=== PATIENT | female | born 1960 | race Caucasian/White ===

== ENCOUNTER 2019-06-19 08:22 | Inpatient (IN) | payer OTHER ==
[~2019-06-19] VITALS: Ht 157.5 cm; Wt 61.5 kg
[~2019-06-19 08:22] MED LIST: ACEASPCAF PO; ALBU4 PO; ALBU90OI6 INH; ALBU90OI61 INH; ASPI325 PO; ASPI325EC PO; ASPI81CH PO; ASPI81EC PO; ATOR20 PO; AZIT250 PO; Aspir 8181 MG PO; BISA10S PR; DOC250 PO; DOCU100 PO; DULERA 100 MCG/13 GM INH; EFFIENT10 MG PO; FAMO20 PO; FISH1000 PO; FLUSAL1005; FLUSAL1005 IH; HYDACE5 PO; ISOD40ER PO; ISOMON30 PO; Isosorbide Mono30 MG PO; MELO7.5 PO; METO25ER PO; MONT10T PO; NITR.6SL SL; OMEP20ER PO; ONDA8 PO; OXYACE5T PO; PRAV20 PO; PROG100 PO; PROM25 PO; Percocet 5-3251 EACH PO; Pravachol80 MG PO; Prednisone20 MG PO; SPIR25 PO; TICA90TA PO; TIOT18 INH; TRAZ100 PO; UBID100 PO; Zofran Odt4 MG SL; Zovirax800 MG PO
[2019-06-19 08:42] LABS: BASOPHILS ABSOLUTE AUTO 0.07 K/mm3 (0.00-0.23); BASOPHILS PERCENT AUTO 1 % (0-2); EOSINOPHILS ABSOLUTE AUTO 0.44 K/mm3 (0.00-0.68); EOSINOPHILS PERCENT AUTO 6 % (0-6); Hematocrit 43.2 % (33.0-51.0); Hemoglobin 13.6 g/dL (11.5-16.0); IMMATURE GRAN ABSOLUTE AUTO 0.02 K/mm3 (0.00-0.10); IMMATURE GRAN PERCENT AUTO 0 % (0-1); LYMPHOCYTES ABSOLUTE AUTO 2.43 K/mm3 (0.84-5.20); LYMPHOCYTES PERCENT AUTO 30 % (21-46); MONOCYTES ABSOLUTE AUTO 0.65 K/mm3 (0.16-1.47); MONOCYTES PERCENT AUTO 8 % (4-13); Mean Corpuscular HGB 29.7 pg (26.0-34.0); Mean Corpuscular HGB Conc 31.5 g/dL (31.5-36.5); Mean Corpuscular Volume 94 fL (80-100); Mean Platelet Volume 11.4 fL (9.1-12.4); NEUTROPHILS ABSOLUTE AUTO 4.38 K/mm3 (1.96-9.15); NEUTROPHILS PERCENT AUTO 55 % (41-73); Platelet Count 147 K/mm3 (150-400); RDW Coefficient Variation 12.4 % (11.7-14.2); RDW Standard Deviation 42.7 fL (35.1-46.3); Red Blood Cell Count 4.58 M/mm3 (3.80-5.20); White Blood Cell Count 7.99 K/mm3 (4.00-11.30)
[2019-06-19] MEDS ORDERED: ZOLP10 PO (08:46)
[2019-06-19] MEDS ORDERED: Isosorbide Mono30 MG PO (08:47)
[2019-06-19] MEDS ORDERED: Ventolin/Prove6.7 GM INH (08:48)
[2019-06-19 09:01] LABS: Alanine Aminotransfer (ALT/SGP 24 U/L (12-78); Albumin, Blood 3.7 g/dL (3.4-5.0); Alk Phos 104 U/L (50-136); Anion Gap 4 mmol/L (6-16); Aspartate Aminotrans (AST/SGOT 20 U/L (12-37); Bilirubin, Total 0.3 mg/dL (0.1-1.0); Blood Urea Nitrogen 14 mg/dL (8-24); Bun/Creatinine Ratio 16.6 (12.0-20.0); CO2, Blood 33 mmol/L (21-32); Calcium, Blood 9.3 mg/dL (8.5-10.1); Chloride, Blood 108 mmol/L (98-108); Creatinine, Blood 0.84 mg/dL (0.40-1.00); Globulin, Blood 3.8 g/dL (2.2-4.0); Glomerular Filtration Rate >60 (60-); Glucose, Blood 114 mg/dL (70-99); Sodium, Blood 145 mmol/L (136-145); Total Protein, Blood 7.5 g/dL (6.4-8.2); Troponin I <0.015 ng/mL (0.000-0.040)
[2019-06-19] MEDS ORDERED: ALBU90OI INH (12:29)
[2019-06-19] MEDS ORDERED: MONT10T PO (13:07)
[2019-06-19] MEDS ORDERED: Vitamin D2000 UNIT PO (13:08)
[2019-06-19] MEDS ORDERED: MONTELUKAST SOD10 MG PO (14:43)
--- NOTE | 2019-06-19 19:00 | NUR ---
ADMISSION PATIENT ARRIVED TO FLOOR AT 1248. PATIENT ON 2L 02, DENIES SOB, PAIN, NAUSEA, DIZZINESS. SHE REQUESTS A SANDWICH ETC, FOOD GIVEN. NO EDEMA NOTED, SKIN CLEAR. LUNGS ARE SLIGHTLY COARSE IN BASES AND SOME WHEEZES IN UPPER LOBES. PATIENT STATES SHE IS TIRED BECAUSE SHE WORKS AT NIGHT AND SLEEPS IN THE DAY. 1700: PATIENT C/O SOB AND STATES SHE "WOKE UP AND WAS PANICKED", BREATHING TREATMENT GIVEN BY RT. 1730: PATIENT STATES THE TREATMENT DIDN'T REALLY HELP, PT APPEARS RESTLESS AND ANXIOUS. BP 176/100, HR 99, SP02 91, RR 18, 02 LPM CHANGED TO 3 L. EARLIER THE PATIENT NOTIFIED STAFF THAT SHE CHANGED HER MIND AND WOULD LIKE TO BE FULL CODE, DR LOUISE WAS CALLED SEVERAL TIMES ABOUT THESE ISSUES, HOWEVER THERE WAS NO ANSWER. THE VOICE MAIL BOX IS NOT SET UP. 182: DR LOUISE STILL NOT ANSWERING. PATIENT'S IN ROOM NOW, THEY ARE CONCERNED BECAUSE PATIENT DIDN'T RECEIVE MORNING HOME MEDS. THIS RN EXPLAINED TO THEM WHAT EACH HOME MED DID AND THAT THE DOCTOR WAS AWARE AND WILL BE NOTIFIED SOON HE WAS ABLE TO ANSWER PHONE. PATIENT APPEARS TO HAVE LESS ANXIETY NOW, NO RESPIRATORY DISTRESS. 184: SITUATION WAS EXPLAINED TO NIGHT RN, SHE WILL RECHECK BP AND/OR CALL VP DIRECTOR OF CREATIVE STRATEGY HOSPITALIST.
--- NOTE | 2019-06-19 20:00 | NUR ---
CALLED DR. LY TO INFORM HIM THE PATIENT MISUNDERSTOOD WHAT DNR MENT WHEN IN ER AND WANTS TO BE A FULL CODE. PATIENT STATED THAT SHE WANTS TO BE SAVED. DOCTOR ORDERED FOR FULL CODE STATUS.
--- NOTE | 2019-06-19 23:00 | NUR ---
PATIENT HAS BEEN VERY RESTLESS. GETTING UP AND DOWN FROM BED. STATING SHE DOESN'T LIKE BEING SHUT UP IN ROOM AND COMPLAINING OF DISCOMFORT IN LEGS AND HEADACHE. PATIENT RECIEVED APAP FOR HEADACHE AND ICEPACK FOR HER FEET. PATIENT HAS ALREADY RECIEVED SEVERAL NEBS FOR SHORTNESS OF BREATH. PATIENT LUNG BETANCOURT ARE TIGHT WITH WHEEZING NOTED THROUGH OUT. PATIENT FAMILY AT BEDSIDE. PATIENT REQUESTING SLEEPING PILL.
[2019-06-19 23:52] LABS: Adenovirus Not Detected (NOT DETECT); Bordetella pertussis Not Detected (NOT DETECT); Chlamydophila pneumoniae Not Detected (NOT DETECT); Coronavirus 229E Not Detected (NOT DETECT); Coronavirus HKU1 Not Detected (NOT DETECT); Coronavirus NL63 Not Detected (NOT DETECT); Coronavirus OC43 Not Detected (NOT DETECT); Human Metapneumovirus Not Detected (NOT DETECT); Human Rhinovirus/Enterovirus Not Detected (NOT DETECT); Influenza A Not Detected (NOT DETECT); Influenza A/2009-H1 Not Detected (NOT DETECT); Influenza A/H1 Not Detected (NOT DETECT); Influenza A/H3 Not Detected (NOT DETECT); Influenza B Not Detected (NOT DETECT); Mycoplasma pneumoniae Not Detected (NOT DETECT); Parainfluenza Virus 1 Not Detected (NOT DETECT); Parainfluenza Virus 2 Not Detected (NOT DETECT); Parainfluenza Virus 3 Not Detected (NOT DETECT); Parainfluenza Virus 4 Not Detected (NOT DETECT); Respiratory Syncytial Virus Not Detected (NOT DETECT)
[2019-06-20 05:03] LABS: BASOPHILS PERCENT AUTO 0 % (0-2); EOSINOPHILS ABSOLUTE AUTO 0.01 K/mm3 (0.00-0.68); EOSINOPHILS PERCENT AUTO 0 % (0-6); Hemoglobin 14.4 g/dL (11.5-16.0); IMMATURE GRAN ABSOLUTE AUTO 0.05 K/mm3 (0.00-0.10); IMMATURE GRAN PERCENT AUTO 1 % (0-1); LYMPHOCYTES PERCENT AUTO 11 % (21-46); MONOCYTES ABSOLUTE AUTO 0.13 K/mm3 (0.16-1.47); MONOCYTES PERCENT AUTO 2 % (4-13); Mean Corpuscular HGB 29.6 pg (26.0-34.0); Mean Corpuscular Volume 93 fL (80-100); Mean Platelet Volume 11.5 fL (9.1-12.4); NEUTROPHILS ABSOLUTE AUTO 7.26 K/mm3 (1.96-9.15); NEUTROPHILS PERCENT AUTO 87 % (41-73); Platelet Count 139 K/mm3 (150-400); RDW Coefficient Variation 12.4 % (11.7-14.2); RDW Standard Deviation 42.1 fL (35.1-46.3); Red Blood Cell Count 4.86 M/mm3 (3.80-5.20); White Blood Cell Count 8.35 K/mm3 (4.00-11.30)
--- NOTE | 2019-06-20 05:31 | NUR ---
PATIENT HAS SLEPT WELL SINCE RECIEVING AMBEIN, WAKING UP ONLY TWICE. PATIENT IS ANXIOUS WHEN AWAKE. PATIENT COMPLAINED OF SLIGHT HEADACHE THIS MORNING. PATIENT ADMITS TO DRINKING CAFFIENE SEVERAL TIMES A DAY. ALSO THINKS IT MIGHT BE RELATED TO MEDICATIONS. DENIES ANY NEEDS AT THIS TIME. CALL LIGHT REMAINS WITHI IN REACH. INDEPENDENT IN ROOM.
[2019-06-20 05:32] LABS: Anion Gap 5 mmol/L (6-16); Blood Urea Nitrogen 14 mg/dL (8-24); Bun/Creatinine Ratio 21.7 (12.0-20.0); CO2, Blood 30 mmol/L (21-32); Calcium, Blood 9.6 mg/dL (8.5-10.1); Chloride, Blood 106 mmol/L (98-108); Creatinine, Blood 0.65 mg/dL (0.40-1.00); Glomerular Filtration Rate >60 (60-); Glucose, Blood 134 mg/dL (70-99); Potassium, Blood 3.9 mmol/L (3.5-5.5); Sodium, Blood 141 mmol/L (136-145)
--- NOTE | 2019-06-20 18:30 | NUR ---
SHIFT SUMMARY PATIENT'S ANXIETY HAS DECREASED, HER VITALS HAVE IMPROVED. HER NC 02 WAS REDUCED TO 2 L. DUONEBS ORDERED AND FIRST DOSE GIVEN TONIGHT. PATIENT IS ABLE TO GO LONGER BETWEEN REQUESTING NEB TREATMENTS. SHE IS STEADY ON HER FEET IN ROOM INDEPENDENTLY, GOT WASHED UP TODAY. DENIES NEW SOB, LUNGS SOUND CLEAR AND DIMINISHED IN BASES. USES CALL LIGHT APPROPRIATELY.
--- NOTE | 2019-06-21 07:17 | NUR ---
PT IS ALERT, ORIENTED AND INDEPENDENT. NO COMPLAINTS OF SOB THIS SHIFT. BREATHING TREATMENTS GIVEN REQUESTED. NO COMPLAINTS OF PAIN. PT SLEPT MOST OF THE NIGHT. WILL CONTINUE TO MONITOR.
--- NOTE | 2019-06-21 17:45 | NUR ---
SHIFT SUMMARY NO CHANGES TO PATIENT CONDITION, LUNG SOUNDS CONTINUING TO IMPROVE. PATIENT CONNECTED TO PORTABLE OXYGEN TANK ON 2 L AND SHE IS ABLE TO WALK IN HALLS WITH STEADY GAIT AND NO SOB OR EXERTION. MEDS GIVEN ON SCHEDULE. PT REQUESTING PEPCID BID, SHE STATES SHE TAKES THAT AT HOME. MED ORDERED PER DR LOUISE. CARDIOPULMONARY ED AND FLUTTER THERAPY STARTED WITH PT. WILL CONTINUE TO MONITOR.
--- NOTE | 2019-06-22 07:58 | NUR ---
PT SLEPT WELL BUT DID SEEM, SHAKY THIS MORNING. DEFINATELY DYSPNEIC UPON EXHERTION. THIS MORNING SHE WAS AT 4L VIA N/C BUT PATIENT DENIES PAIN OR NAUSEA. PT MAY BENEFIT FROM AN O2 EVAL.
--- NOTE | 2019-06-22 10:54 | NUR ---
PATIENT WENT ON A WALK WITH HER DAUGHTER AND SON AND BECAME SOB BY THE TIME SHE REACHED THE ELEVATORS. PATIENT WENT IN WHEEL CHAIR FOR REMAINDER OF THE WALK. SPOKE WITH RT AND INFORMED THEM THAT PATIENT WOULD NEED AN OXYGEN EVAL PRIOR TO GOING HOME.
--- NOTE | 2019-06-22 11:24 | NUR ---
PATIENT DECLINED LOVENOX INJECTION SHE TAKES BRILINTA ALREADY. NOTE WRITTEN ON PATIENT'S WHITEBOARD TO DOCTOR ASKING IF WE CAN DISCONTINUE THE LOVENOX. WILL TRY TO CATCH DR RAMOS WHEN HE ROUNDS.
--- NOTE | 2019-06-22 18:01 | NUR ---
SHIFT SUMMARY PATIENT SEEMED TO DECLINE TODAY. OXYGEN NEEDS INCREASED FROM 2L TO 5L NC PER XIMENA RT. PATIENT REQUESTS BREATHING TREATMENTS REGULARLY. SHE WAS GETTING UP TO AMBULATE FREQUENTLY AND [place] RT ADVISED THAT SHE STOP WALKING SO MUCH AT THIS TIME. SHE IS ONLY ABLE TO AMBULATE TO THE 3RD FLOOR ELEVATORS BEFORE BECOMING TOO SOB AND NEEDING TO SIT IN A WHEEL CHAIR. FAMILY HAS BEEN WITH PATIENT ALL DAY AND ARE VERY SUPPORTIVE. WILL CONTINUE TO MONITOR AND PROVIDE CARE NEEDED.
--- NOTE | 2019-06-22 22:41 | NUR ---
2144: spoke to jose howell regarding patient; sob, very trembling and flushed. SBP 168, patient extremely anxious, s ays she has chest pain, indicating under the R breast toward the epigastirc area. orders received. 2239: spoke to DR Howell regarding pt EKG completed, pt received Xanax per order. Troponin 0.032 up from prior 0.015. patient tripoding very restless. sending for 2 view xray per order as patient tolerates.
--- NOTE | 2019-06-23 13:19 | NUR ---
PATIENT EXPIRIENCING SOME ANXIETY AT THIS TIME. SON CAME AND ASKED ME IF PATIENT CAN HAVE SOME ANXIETY MEDICATION LIKE SHE WAS GIVEN LAST NIGHT. DR RAMOS CALLED AND ASKED FOR AN ORDER; XANAX 0.5MG PO Q4HRS GIVEN TO HELP CONTROL ANXIETY. DOSE ADMINISTERED WITH MODERATE RESULTS.
--- NOTE | 2019-06-23 14:42 | NUR ---
PATIENT UP AND WALKING WITH SON, USING FWW. PATIENT TAKING IT SLOWLY AND HAS PORTABLE OXYGEN WITH HER THAT SON IS PULLING BEHIND HER.
--- NOTE | 2019-06-23 16:39 | NUR ---
SHIFT SUMMARY THE PATIENT HAS HAD AN EMOTIONALLY ROUGH DAY. SHE HAD AN OXYGEN EVAL AND IT WAS DETERMINED THAT SHE WILL REQUIRE OXYGEN UPON DISCHARGE. SHE CONTINUES TO BE DETERMINED TO GET STRONGER, AND POSSIBLY HOPING THAT WILL GET RID OF THE NEED FOR OXYGEN EVENTUALLY. SHE IS UP AMBULATING WITH FAMILY MEMBERS QUITE FREQUENTLY USING A FWW. SHE TAKES HER TIME AND PACES HERSELF. SHE HAS BEEN PLEASANT AND COOPERATIVE WITH STAFF. WILL CONTINUE TO MONITOR AND PROVIDE CARE.
[2019-06-23 19:54] LABS: PCO2 Arterial 55.9 mmHg (35-45); PO2 Arterial 49 mmHg (80-100); pH Blood Arterial 7.45 (7.35-7.45)
--- NOTE | 2019-06-23 19:58 | NUR ---
1929: ASSUMED CARE OF PATIENT. PATIENT SITTING AT BEDSIDE, FAMILY IN THE ROOM. 1949: SPOKE TO THE DR RT REQUESTING ABG. DR DECLINED AT THIS TIME. 1957: CHECKED ON PATIENT. PT ON NON-REBREATHER @ 10L O2. FAMILY AT BEDSIDE. GAVE XANAX PER EMAR. WILL CONTINUE TO MONITOR.
--- NOTE | 2019-06-24 17:08 | NUR ---
SUMMARY PT SITTING UP IN THE CHAIR AT THE BEDSIDE, PT HAS BEEN UP IN THE HALLS TO WALK SEVERAL TIMES, PT IS DYSPNEIC WITH ANY ACTIVITY, PT RECOVERS WELL AND MANAGES HER BREATHING, FAMILY HAS BEEN IN AND OUT OF THE ROOM TODAY, PT HAD A VQ SCAN TODAY, MICHELET WELL, VSS, NO ACUTE CHANGES, WILL CONT TO MONITOR
[2019-06-25 05:44] LABS: Bicarbonate Venous 33.6 mmol/L (24.0-30.0); PCO2 Venous 66.9 mmHg (38-42); pH Blood Venous 7.37 (7.34-7.37)
[2019-06-25 05:56] LABS: BASOPHILS ABSOLUTE AUTO 0.01 K/mm3 (0.00-0.23); BASOPHILS PERCENT AUTO 0 % (0-2); EOSINOPHILS ABSOLUTE AUTO 0.02 K/mm3 (0.00-0.68); EOSINOPHILS PERCENT AUTO 0 % (0-6); Hematocrit 43.1 % (33.0-51.0); Hemoglobin 13.4 g/dL (11.5-16.0); IMMATURE GRAN ABSOLUTE AUTO 0.04 K/mm3 (0.00-0.10); IMMATURE GRAN PERCENT AUTO 1 % (0-1); LYMPHOCYTES ABSOLUTE AUTO 2.26 K/mm3 (0.84-5.20); LYMPHOCYTES PERCENT AUTO 29 % (21-46); MONOCYTES ABSOLUTE AUTO 0.68 K/mm3 (0.16-1.47); MONOCYTES PERCENT AUTO 9 % (4-13); Mean Corpuscular HGB 29.8 pg (26.0-34.0); Mean Corpuscular HGB Conc 31.1 g/dL (31.5-36.5); Mean Platelet Volume 11.3 fL (9.1-12.4); NEUTROPHILS ABSOLUTE AUTO 4.82 K/mm3 (1.96-9.15); NEUTROPHILS PERCENT AUTO 62 % (41-73); Platelet Count 132 K/mm3 (150-400); RDW Coefficient Variation 12.6 % (11.7-14.2); RDW Standard Deviation 45.1 fL (35.1-46.3); Red Blood Cell Count 4.49 M/mm3 (3.80-5.20); White Blood Cell Count 7.83 K/mm3 (4.00-11.30)
[2019-06-25 06:02] LABS: Mean Corpuscular Volume 96 fL (80-100)
[2019-06-25 06:17] LABS: Anion Gap 2 mmol/L (6-16); Blood Urea Nitrogen 27 mg/dL (8-24); Bun/Creatinine Ratio 32.3 (12.0-20.0); CO2, Blood 36 mmol/L (21-32); Calcium, Blood 8.6 mg/dL (8.5-10.1); Chloride, Blood 105 mmol/L (98-108); Creatinine, Blood 0.84 mg/dL (0.40-1.00); Glomerular Filtration Rate >60 (60-); Glucose, Blood 65 mg/dL (70-99); Potassium, Blood 3.8 mmol/L (3.5-5.5); Sodium, Blood 143 mmol/L (136-145)
--- NOTE | 2019-06-25 06:26 | NUR ---
SHIFT SUMMARY PT IS A 59 Y/O FEMALE, ADMITTED FOR ACUTE RESPIRATORY FAILURE. SHE IS A&O X 4, AND A SBA/INDEPENDENT IN THE ROOM. PT IS ON 3L OF O2 AT REST, AND SATTING WELL IN THE MID 90S. ALL OTHER VITALS STABLE. SHE WAS MEDICATED FOR ANXIETY AT BEDTIME WITH PRN XANAX. NO COMPLAINTS OF PAIN, NAUSEA OR SOB. PT SLEPT WELL DURING THE NIGHT. NO OTHER ACUTE CHANGES IN PT CONDITION NOTED. WILL CONTINUE TO MONITOR AND TREAT PER EMAR UNTIL HAND OFF TO DAY SHIFT RN.
--- NOTE | 2019-06-25 17:25 | NUR ---
SUMMARY PT SITTING UP IN BED WATCHING TV AND VISITING WITH HER FAMILY, PT HAS BEEN COOPERATIVE WITH CARE T/O THE DAY, HAS BEEN UP WALKING IN THE HALLS FREQUENTLY, MANAGING HER BREATHING WELL, VSS, NO ACUTE CHANGES, WILL CONTINUE TO MONITOR
--- NOTE | 2019-06-26 06:04 | NUR ---
SHIFT SUMMARY PT IS A 59 Y/O FEMALE, ADMITTED FOR ACUTE RESPIRATORY FAILURE. SHE IS A&O X 4, AND INDEPENDENT IN THE ROOM. THE PT HAD BEEN ON 2L O2 VIA NC, THOUGH THIS MORNING THE PT WOKE UP WITHOUT HER OXYGEN ON. WHEN TESTED, PT'S O2 SATS WERE AT 94% ON RA. PT THEN AMBULATED APPROXIMATELY 150 FEET, AND WHEN RECHECKED WAS STILL AT 93-94% ON RA. PT STATES SHE IS FEELING "MUCH BETTER" NOW. NO COMPLAINTS OF ACUTE PAIN OR NAUSEA. VITAL SIGNS STABLE. NO OTHER ACUTE CHANGES IN PT CONDITION NOTED. WILL CONTINUE TO MONITOR AND TREAT PER EMAR UNTIL HAND OFF TO DAY SHIFT RN.
[2019-06-26] MEDS ORDERED: Acetylcyst200 MG/1 M INH (10:34)
[2019-06-26] MEDS ORDERED: BENZ100A PO (10:35)
[2019-06-26] MEDS ORDERED: ESCI10 PO (10:35)
[2019-06-26] MEDS ORDERED: FAMO20 PO (10:37)
[2019-06-26] MEDS ORDERED: GUAI600T33 PO (10:37)
[2019-06-26] MEDS ORDERED: ALBU3IS INH (10:39)
[2019-06-26] MEDS ORDERED: PRED20 PO (10:41)
--- NOTE | 2019-06-26 11:56 | NUR ---
PT AMBULATING IN HALLS DURING SHIFT REPORT THIS AM, WAITING TO GO HOME. PT CONTINUED TO IMPROVE AND HAS REMAINED ON RA THRU OUT THE NIGHT AND TODAY. DR RAMOS IN TO SEE PT THIS AM. D/C ORDERS PLACED. HOME O2 EVAL DONE BY RT AGAIN; PT DOES NOT NEED O2 AT THIS TIME. PULMONOLOGY APPOINTMENT MADE FOR PT TO BE D/C'D, PT IS HIGH RISK FOR READMISSION WITH COPD. PT REPORTED THAT SHE IS A SMOKER, "BUT NO MORE". A&O, INDEPENDENT IN . CALLED SON TO PICK HER UP TO GO HOME. NO C/O. D/C INSTRUCTIONS GIVEN. PT VERBALIZED UNDERSTANDING. ASSIST OUT TO CAR VIA W/C.
== END 2019-06-26 11:34 | disposition home or self-care (01) | DRG 189 ==
LOC: ER 08:22 → MEDS 12:04 → ENPENDDIS 06-26 08:56 → MEDS 06-26 11:34
PROVIDERS: Emergency Medicine; Internal Medicine; ADMIT Hospitalist
DX: J96.22 Acute and chronic respiratory failure with hypercapnia (principal); J44.1 Chronic obstructive pulmonary disease with (acute) exacerbation; E78.5 Hyperlipidemia, unspecified; F17.210 Nicotine dependence, cigarettes, uncomplicated; F41.9 Anxiety disorder, unspecified; I25.2 Old myocardial infarction; F32.9 Major depressive disorder, single episode, unspecified; I25.9 Chronic ischemic heart disease, unspecified; Z95.5 Presence of coronary angioplasty implant and graft; I10 Essential (primary) hypertension; K21.9 Gastro-esophageal reflux disease without esophagitis; I25.10 Atherosclerotic heart disease of native coronary artery without angina pectoris
CPT/HCPCS: 0099U; 36415; 36600; 71045; 71046; 78582; 80048; 80053; 82803; 83880; 84145; 84484; 85025; 85379; 87070; 87205; 93005; 93010; 94010; 94640; 94644; 94664; 94667; 94760; 94761; 96374; 96375; 98960; 99285-25; A9270; A9540; A9558; J1650; J2920; J2930; J3475; J7512

== ENCOUNTER 2020-11-10 11:56 | Observation (INO) | payer OTHER ==
[~2020-11-10] VITALS: Ht 162.6 cm; Wt 61.5 kg
[~2020-11-10 11:56] MED LIST changes: +ALBU3IS INH; +Acetylcyst200 MG/1 M INH; -Aspir 8181 MG PO; +BENZ100A PO; +ESCI10 PO; +GUAI600T33 PO; +MONTELUKAST SOD10 MG PO; +PRED20 PO; -Pravachol80 MG PO; +Ventolin/Prove6.7 GM INH; +Vitamin D2000 UNIT PO; +ZOLP10 PO
[2020-11-10 12:48] LABS: BASOPHILS ABSOLUTE AUTO 0.04 K/mm3 (0.00-0.23); BASOPHILS PERCENT AUTO 1 % (0-2); EOSINOPHILS ABSOLUTE AUTO 0.06 K/mm3 (0.00-0.68); EOSINOPHILS PERCENT AUTO 1 % (0-6); Hematocrit 39.7 % (33.0-51.0); Hemoglobin 12.9 g/dL (11.5-16.0); IMMATURE GRAN ABSOLUTE AUTO 0.01 K/mm3 (0.00-0.10); IMMATURE GRAN PERCENT AUTO 0 % (0-1); LYMPHOCYTES ABSOLUTE AUTO 1.59 K/mm3 (0.84-5.20); LYMPHOCYTES PERCENT AUTO 24 % (21-46); MONOCYTES ABSOLUTE AUTO 0.43 K/mm3 (0.16-1.47); MONOCYTES PERCENT AUTO 7 % (4-13); Mean Corpuscular HGB Conc 32.5 g/dL (31.5-36.5); Mean Corpuscular Volume 89 fL (80-100); Mean Platelet Volume 11.5 fL (9.1-12.4); NEUTROPHILS ABSOLUTE AUTO 4.52 K/mm3 (1.96-9.15); NEUTROPHILS PERCENT AUTO 68 % (41-73); Platelet Count 166 K/mm3 (150-400); RDW Coefficient Variation 12.1 % (11.7-14.2); RDW Standard Deviation 39.8 fL (35.1-46.3); Red Blood Cell Count 4.45 M/mm3 (3.80-5.20); White Blood Cell Count 6.65 K/mm3 (4.00-11.30)
[2020-11-10 13:04] LABS: Alanine Aminotransfer (ALT/SGP 21 U/L (12-78); Albumin, Blood 3.4 g/dL (3.4-5.0); Albumin/Globulin Ratio 0.9 (0.8-1.8); Alk Phos 98 U/L (50-136); Anion Gap 3 mmol/L (6-16); Aspartate Aminotrans (AST/SGOT 16 U/L (12-37); Bilirubin, Total 0.4 mg/dL (0.1-1.0); Blood Urea Nitrogen 9 mg/dL (8-24); Bun/Creatinine Ratio 14.1 (12.0-20.0); CO2, Blood 30 mmol/L (21-32); Calcium, Blood 9.4 mg/dL (8.5-10.1); Chloride, Blood 105 mmol/L (98-108); Creatinine, Blood 0.64 mg/dL (0.40-1.00); Globulin, Blood 3.8 g/dL (2.2-4.0); Glomerular Filtration Rate >60 (60-); Glucose, Blood 127 mg/dL (70-99); Potassium, Blood 3.7 mmol/L (3.5-5.5); Sodium, Blood 138 mmol/L (136-145); Total Protein, Blood 7.2 g/dL (6.4-8.2); Troponin I <0.015 ng/mL (0.000-0.040)
[2020-11-10] MEDS ORDERED: MONT10T PO (15:03)
[2020-11-10 16:31] LABS: Thyroid Stimulating Hormone 1.09 uIU/mL (0.360-4.800); Triiodothyronine, Free 2.58 pg/mL (2.18-3.98)
--- NOTE | 2020-11-10 19:07 | NUR ---
SHIFT SUMMARY PT ARRIVED TO ROOM AT 1828. ADMISSION ASSESSMENT COMPLETE THEN HANDED OFF TO COMPANY CONTROLLER NURSE WHO ASSUMES CARE AT THIS TIME. AWAITING TELE AND SCD PLACEMENT AT THIS TIME. PT ORIENTED TO ROOM. BED IN LOW POSITION, CALL LIGHT WITHIN REACH.
[2020-11-10] MEDS ORDERED: VITAMIN D32000 UNI1 PO (19:55)
--- NOTE | 2020-11-11 04:34 | NUR ---
SHIFT SUMMARY PT HAS BEEN AWAKE MOST OF THE NIGHT. PT GIVEN AMBIEN FOR SLEEP, BUT CONTINUED TO HAVE INSOMNIA. PT PACES AROUND IN ROOM, AND COMES TO THE DOOR OCCASIONALLY. PT A/O BE APPEARS TO BE FORGETFUL AT TIMES. PT HAS HAD NO COMPLAINTS OF CHEST PAIN THIS SHIFT. VITALS ARE STABLE AND TROPONINS HAVE BEEN NEGATIVE. NSR ON TELE. NO ACUTE CHANGES TO REPORT. BED IN LOWEST POSITION, CALL LIGHT WITHIN REACH.
[2020-11-11 07:51] LABS: BASOPHILS ABSOLUTE AUTO 0.04 K/mm3 (0.00-0.23); BASOPHILS PERCENT AUTO 1 % (0-2); EOSINOPHILS ABSOLUTE AUTO 0.06 K/mm3 (0.00-0.68); EOSINOPHILS PERCENT AUTO 1 % (0-6); Hematocrit 38.3 % (33.0-51.0); Hemoglobin 12.5 g/dL (11.5-16.0); IMMATURE GRAN ABSOLUTE AUTO 0.01 K/mm3 (0.00-0.10); IMMATURE GRAN PERCENT AUTO 0 % (0-1); LYMPHOCYTES ABSOLUTE AUTO 1.68 K/mm3 (0.84-5.20); LYMPHOCYTES PERCENT AUTO 30 % (21-46); MONOCYTES ABSOLUTE AUTO 0.47 K/mm3 (0.16-1.47); MONOCYTES PERCENT AUTO 8 % (4-13); Mean Corpuscular HGB 29.2 pg (26.0-34.0); Mean Corpuscular HGB Conc 32.6 g/dL (31.5-36.5); Mean Corpuscular Volume 90 fL (80-100); Mean Platelet Volume 11.4 fL (9.1-12.4); NEUTROPHILS ABSOLUTE AUTO 3.43 K/mm3 (1.96-9.15); NEUTROPHILS PERCENT AUTO 60 % (41-73); Platelet Count 153 K/mm3 (150-400); RDW Coefficient Variation 12.2 % (11.7-14.2); RDW Standard Deviation 39.8 fL (35.1-46.3); Red Blood Cell Count 4.28 M/mm3 (3.80-5.20); White Blood Cell Count 5.69 K/mm3 (4.00-11.30)
[2020-11-11 08:10] LABS: Alanine Aminotransfer (ALT/SGP 21 U/L (12-78); Albumin, Blood 3.4 g/dL (3.4-5.0); Albumin/Globulin Ratio 0.9 (0.8-1.8); Alk Phos 96 U/L (50-136); Anion Gap 2 mmol/L (6-16); Aspartate Aminotrans (AST/SGOT 15 U/L (12-37); Bilirubin, Total 0.4 mg/dL (0.1-1.0); Blood Urea Nitrogen 9 mg/dL (8-24); Bun/Creatinine Ratio 11.9 (12.0-20.0); CO2, Blood 32 mmol/L (21-32); Calcium, Blood 9.6 mg/dL (8.5-10.1); Chloride, Blood 107 mmol/L (98-108); Creatinine, Blood 0.76 mg/dL (0.40-1.00); Globulin, Blood 3.8 g/dL (2.2-4.0); Glomerular Filtration Rate >60 (60-); Glucose, Blood 99 mg/dL (70-99); Potassium, Blood 3.7 mmol/L (3.5-5.5); Sodium, Blood 141 mmol/L (136-145); Total Protein, Blood 7.2 g/dL (6.4-8.2); Troponin I <0.015 ng/mL (0.000-0.040)
[2020-11-11] MEDS ORDERED: CITA20 PO (11:12)
--- NOTE | 2020-11-11 12:34 | NUR ---
DISCHARGED HOME. VERBALIZED UNDERSTANDING OF DISCHARGE INSTRUCTIONS AND ALL QUESTIONS ANSWERED. ALL PERSONAL BELONINGS IN PATIENT POSSESSION AT TIME OF DISCHARGE
== END 2020-11-11 11:55 | disposition home or self-care (01) ==
LOC: ER 11:56 → ERHOLD 11:57 → MEDS 18:25 → ENPENDDIS 11-11 10:17 → MEDS 11-11 11:55
PROVIDERS: Emergency Medicine; ADMIT Internal Medicine
DX: R07.9 Chest pain, unspecified (principal); R06.02 Shortness of breath; I25.10 Atherosclerotic heart disease of native coronary artery without angina pectoris; J44.9 Chronic obstructive pulmonary disease, unspecified; I25.2 Old myocardial infarction; I10 Essential (primary) hypertension; K21.9 Gastro-esophageal reflux disease without esophagitis; E78.5 Hyperlipidemia, unspecified; R53.83 Other fatigue; F17.200 Nicotine dependence, unspecified, uncomplicated; Z95.5 Presence of coronary angioplasty implant and graft; Z79.82 Long term (current) use of aspirin; Z90.710 Acquired absence of both cervix and uterus
CPT/HCPCS: 36415; 71045; 80053; 83880; 84443; 84481; 84484; 85025; 85651; 86140; 93005; 93010; 96372; 96374; 96375; 96376; 99285-25; A9270; G0378; J1650; J2060; J2405

== ENCOUNTER 2020-12-27 12:18 | Emergency (ER) | payer OTHER ==
[~2020-12-27] VITALS: Ht 162.6 cm; Wt 63.5 kg
[~2020-12-27 12:18] MED LIST changes: +CITA20 PO; +VITAMIN D32000 UNI1 PO
[2020-12-27 12:51] LABS: BASOPHILS ABSOLUTE AUTO 0.06 K/mm3 (0.00-0.23); BASOPHILS PERCENT AUTO 1 % (0-2); EOSINOPHILS ABSOLUTE AUTO 0.44 K/mm3 (0.00-0.68); EOSINOPHILS PERCENT AUTO 8 % (0-6); Hematocrit 41.1 % (33.0-51.0); Hemoglobin 13.2 g/dL (11.5-16.0); IMMATURE GRAN ABSOLUTE AUTO 0.01 K/mm3 (0.00-0.10); IMMATURE GRAN PERCENT AUTO 0 % (0-1); LYMPHOCYTES ABSOLUTE AUTO 1.36 K/mm3 (0.84-5.20); LYMPHOCYTES PERCENT AUTO 23 % (21-46); MONOCYTES ABSOLUTE AUTO 0.51 K/mm3 (0.16-1.47); MONOCYTES PERCENT AUTO 9 % (4-13); Mean Corpuscular HGB 29.3 pg (26.0-34.0); Mean Corpuscular HGB Conc 32.1 g/dL (31.5-36.5); Mean Corpuscular Volume 91 fL (80-100); Mean Platelet Volume 10.8 fL (9.1-12.4); NEUTROPHILS ABSOLUTE AUTO 3.51 K/mm3 (1.96-9.15); NEUTROPHILS PERCENT AUTO 60 % (41-73); Platelet Count 144 K/mm3 (150-400); RDW Coefficient Variation 12.3 % (11.7-14.2); RDW Standard Deviation 41.1 fL (35.1-46.3); White Blood Cell Count 5.89 K/mm3 (4.00-11.30)
[2020-12-27 13:20] LABS: Alanine Aminotransfer (ALT/SGP 23 U/L (12-78); Albumin, Blood 3.5 g/dL (3.4-5.0); Albumin/Globulin Ratio 0.9 (0.8-1.8); Alk Phos 112 U/L (50-136); Anion Gap 1 mmol/L (6-16); Aspartate Aminotrans (AST/SGOT 17 U/L (12-37); Bilirubin, Total 0.4 mg/dL (0.1-1.0); Blood Urea Nitrogen 9 mg/dL (8-24); Bun/Creatinine Ratio 14.3 (12.0-20.0); CO2, Blood 37 mmol/L (21-32); Calcium, Blood 9.7 mg/dL (8.5-10.1); Chloride, Blood 104 mmol/L (98-108); Creatinine, Blood 0.63 mg/dL (0.40-1.00); Glomerular Filtration Rate >60 (60-); Glucose, Blood 94 mg/dL (70-99); Potassium, Blood 4.1 mmol/L (3.5-5.5); Sodium, Blood 142 mmol/L (136-145); Total Protein, Blood 7.5 g/dL (6.4-8.2); Troponin I <0.015 ng/mL (0.000-0.040)
[2020-12-27] MEDS ORDERED: ANORO ELLIPTA1 EACH INH (15:43)
[2020-12-27] MEDS ORDERED: ALPRAZOLAM0.5 M1 PO (15:44)
[2020-12-27] MEDS ORDERED: TRAZ100 PO (15:44)
[2020-12-27] MEDS ORDERED: Isosorbide Mono30 MG PO (15:45)
[2020-12-27] MEDS ORDERED: Pravastatin Sod80 MG PO (15:45)
[2020-12-27] MEDS ORDERED: ALBU90OI INH (15:46)
[2020-12-27] MEDS ORDERED: TICA90TA PO (15:46)
[2020-12-27] MEDS ORDERED: Aspir 8181 MG PO (16:14)
[2020-12-27] MEDS ORDERED: DOXY100 PO (18:33)
[2020-12-27] MEDS ORDERED: Prednisone20 MG PO (18:33)
== END 2020-12-27 19:00 | disposition home or self-care (01) ==
LOC: ER 12:18
PROVIDERS: Emergency Medicine
DX: J44.1 Chronic obstructive pulmonary disease with (acute) exacerbation (principal); I10 Essential (primary) hypertension; I25.2 Old myocardial infarction; E78.5 Hyperlipidemia, unspecified; I25.10 Atherosclerotic heart disease of native coronary artery without angina pectoris; Z79.82 Long term (current) use of aspirin; Z79.899 Other long term (current) drug therapy; Z79.01 Long term (current) use of anticoagulants; Z91.041 Radiographic dye allergy status
CPT/HCPCS: 36415; 71046; 80053; 83880; 84484; 85025; 85379; 93005; 93010; 94644; 94645; 96374; 99285-25; A9270; J2930

== ENCOUNTER 2021-07-03 11:36 | Emergency (ER) | payer OTHER ==
[~2021-07-03] VITALS: Ht 154.9 cm; Wt 63.5 kg
[~2021-07-03 11:36] MED LIST changes: +ALBU90OI INH; +ALPRAZOLAM0.5 M1 PO; +ANORO ELLIPTA1 EACH INH; +Aspir 8181 MG PO; +DOXY100 PO; +Pravastatin Sod80 MG PO
[2021-07-03 12:04] LABS: BASOPHILS ABSOLUTE AUTO 0.05 K/mm3 (0.00-0.23); BASOPHILS PERCENT AUTO 1 % (0-2); EOSINOPHILS ABSOLUTE AUTO 0.18 K/mm3 (0.00-0.68); EOSINOPHILS PERCENT AUTO 3 % (0-6); Hematocrit 40.8 % (33.0-51.0); Hemoglobin 13.1 g/dL (11.5-16.0); IMMATURE GRAN ABSOLUTE AUTO 0.01 K/mm3 (0.00-0.10); IMMATURE GRAN PERCENT AUTO 0 % (0-1); LYMPHOCYTES ABSOLUTE AUTO 2.34 K/mm3 (0.84-5.20); LYMPHOCYTES PERCENT AUTO 39 % (21-46); MONOCYTES ABSOLUTE AUTO 0.51 K/mm3 (0.16-1.47); MONOCYTES PERCENT AUTO 9 % (4-13); Mean Corpuscular HGB Conc 32.1 g/dL (31.5-36.5); Mean Corpuscular Volume 90 fL (80-100); Mean Platelet Volume 10.8 fL (9.1-12.4); NEUTROPHILS ABSOLUTE AUTO 2.88 K/mm3 (1.96-9.15); NEUTROPHILS PERCENT AUTO 48 % (41-73); Platelet Count 163 K/mm3 (150-400); RDW Coefficient Variation 13.1 % (11.7-14.2); RDW Standard Deviation 43.5 fL (35.1-46.3); Red Blood Cell Count 4.52 M/mm3 (3.80-5.20); White Blood Cell Count 5.97 K/mm3 (4.00-11.30)
[2021-07-03 12:24] LABS: Alanine Aminotransfer (ALT/SGP 20 U/L (12-78); Albumin, Blood 3.2 g/dL (3.4-5.0); Albumin/Globulin Ratio 0.8 (0.8-1.8); Alk Phos 102 U/L (50-136); Anion Gap 3 mmol/L (6-16); Aspartate Aminotrans (AST/SGOT 17 U/L (12-37); Bilirubin, Total 0.5 mg/dL (0.1-1.0); Blood Urea Nitrogen 8 mg/dL (8-24); Bun/Creatinine Ratio 9.8 (12.0-20.0); CO2, Blood 32 mmol/L (21-32); Calcium, Blood 9.7 mg/dL (8.5-10.1); Chloride, Blood 106 mmol/L (98-108); Creatinine, Blood 0.82 mg/dL (0.40-1.00); Globulin, Blood 4.1 g/dL (2.2-4.0); Glomerular Filtration Rate >60 (60-); Glucose, Blood 98 mg/dL (70-99); Potassium, Blood 3.5 mmol/L (3.5-5.5); Sodium, Blood 141 mmol/L (136-145); Total Protein, Blood 7.3 g/dL (6.4-8.2); Troponin I <0.015 ng/mL (0.000-0.040)
[2021-07-03] MEDS ORDERED: ACET500 PO (16:40)
[2021-07-03] MEDS ORDERED: LIDO700A20 TOP (16:40)
[2021-07-03] MEDS ORDERED: Robaxin750 MG PO (16:40)
== END 2021-07-03 16:50 | disposition home or self-care (01) ==
LOC: ER 11:36
PROVIDERS: Emergency Medicine
DX: S29.011A Strain of muscle and tendon of front wall of thorax, initial encounter (principal); M62.838 Other muscle spasm; J44.9 Chronic obstructive pulmonary disease, unspecified; I25.2 Old myocardial infarction; E78.5 Hyperlipidemia, unspecified; I10 Essential (primary) hypertension; F17.210 Nicotine dependence, cigarettes, uncomplicated; Z79.899 Other long term (current) drug therapy; Z79.82 Long term (current) use of aspirin; X58.XXXA Exposure to other specified factors, initial encounter
CPT/HCPCS: 36415; 71045; 80053; 84484; 85025; 93005; 93010; 96374; 99284-25; A9270; J1885

== ENCOUNTER → 2021-08-29 | Outpatient (CLI) | payer OTHER ==
[~2021-08-29] MED LIST changes: +ACET500 PO; +LIDO700A20 TOP; +Robaxin750 MG PO
== END | disposition home or self-care (01) ==
LOC: LAB SHORT 10:10
DX: I25.10 Atherosclerotic heart disease of native coronary artery without angina pectoris (principal); I10 Essential (primary) hypertension; E78.2 Mixed hyperlipidemia; F17.218 Nicotine dependence, cigarettes, with other nicotine-induced disorders; F41.1 Generalized anxiety disorder
CPT/HCPCS: 83880

== ENCOUNTER → 2021-11-08 | Outpatient (CLI) | payer OTHER | LOC: LAB SHORT 15:20 | DX: Z20.822 Contact with and (suspected) exposure to COVID-19 (principal) | CPT/HCPCS: U0003 ==

== ENCOUNTER 2022-08-24 09:34 | Emergency (ER) | payer OTHER ==
[~2022-08-24] VITALS: Ht 154.9 cm; Wt 68.0 kg
== END 2022-08-24 11:10 | disposition home or self-care (01) ==
LOC: ER 09:34
DX: U07.1 COVID-19 (principal); I25.2 Old myocardial infarction; I10 Essential (primary) hypertension; F17.210 Nicotine dependence, cigarettes, uncomplicated; Z95.5 Presence of coronary angioplasty implant and graft
CPT/HCPCS: 99282

== ENCOUNTER 2022-11-17 01:38 | Inpatient (IN) | payer OTHER ==
[~2022-11-17] VITALS: Ht 162.6 cm; Wt 64.0 kg
--- NOTE | 2022-11-17 01:00 | NUR ---
NOTIFIED PHYSICIAN PHYSICIAN NOTIFIED THAT PT's BP REMAINED ELEVATED. AND DISCUSSED PT'S INCREASED, CONSISTANT LEVEL OF ANXIETY AND WORK OF BREATHING. ORDERS PLACED.
[2022-11-17 02:07] LABS: Base Excess Venous 13.5 mmol/L; Bicarbonate Venous 34.3 mmol/L (24.0-30.0); PCO2 Venous 81.3 mmHg (38-42)
[2022-11-17] MEDS ORDERED: LISI20 PO (02:25)
[2022-11-17] MEDS ORDERED: LISI5 PO (02:25)
[2022-11-17] MEDS ORDERED: BRILINTA90 M7 PO (02:26)
[2022-11-17] MEDS ORDERED: ZOLPIDEM TARTRA10 MG PO (02:28)
[2022-11-17 03:06] LABS: BASOPHILS ABSOLUTE AUTO 0.07 K/mm3 (0.00-0.23); BASOPHILS PERCENT AUTO 1 % (0-2); EOSINOPHILS ABSOLUTE AUTO 0.24 K/mm3 (0.00-0.68); EOSINOPHILS PERCENT AUTO 2 % (0-6); Hematocrit 39.7 % (33.0-51.0); Hemoglobin 11.7 g/dL (11.5-16.0); IMMATURE GRAN ABSOLUTE AUTO 0.02 K/mm3 (0.00-0.10); IMMATURE GRAN PERCENT AUTO 0 % (0-1); LYMPHOCYTES ABSOLUTE AUTO 2.71 K/mm3 (0.84-5.20); LYMPHOCYTES PERCENT AUTO 26 % (21-46); MONOCYTES ABSOLUTE AUTO 0.74 K/mm3 (0.16-1.47); MONOCYTES PERCENT AUTO 7 % (4-13); Mean Corpuscular HGB 24.8 pg (26.0-34.0); Mean Corpuscular HGB Conc 29.5 g/dL (31.5-36.5); Mean Corpuscular Volume 84 fL (80-100); Mean Platelet Volume 11.5 fL (9.1-12.4); NEUTROPHILS ABSOLUTE AUTO 6.54 K/mm3 (1.96-9.15); NEUTROPHILS PERCENT AUTO 63 % (41-73); Platelet Count 169 K/mm3 (150-400); RDW Coefficient Variation 16.6 % (11.7-14.2); RDW Standard Deviation 51.8 fL (35.1-46.3); Red Blood Cell Count 4.72 M/mm3 (3.80-5.20); White Blood Cell Count 10.32 K/mm3 (4.00-11.30)
[2022-11-17 03:23] LABS: Albumin, Blood 3.4 g/dL (3.4-5.0); Albumin/Globulin Ratio 0.8 (0.8-1.8); Bilirubin, Total 0.4 mg/dL (0.1-1.0); Bun/Creatinine Ratio 16.6 (12.0-20.0); Calcium, Blood 9.8 mg/dL (8.5-10.1); Creatinine, Blood 0.6 mg/dL (0.40-1.00); Globulin, Blood 4.1 g/dL (2.2-4.0); Potassium, Blood 4.3 mmol/L (3.5-5.5); Total Protein, Blood 7.5 g/dL (6.4-8.2)
[2022-11-17 05:14] LABS: BASOPHILS ABSOLUTE AUTO 0.04 K/mm3 (0.00-0.23); BASOPHILS PERCENT AUTO 0 % (0-2); EOSINOPHILS ABSOLUTE AUTO 0.03 K/mm3 (0.00-0.68); EOSINOPHILS PERCENT AUTO 0 % (0-6); Hematocrit 37.4 % (33.0-51.0); Hemoglobin 11.2 g/dL (11.5-16.0); IMMATURE GRAN ABSOLUTE AUTO 0.05 K/mm3 (0.00-0.10); IMMATURE GRAN PERCENT AUTO 0 % (0-1); LYMPHOCYTES ABSOLUTE AUTO 0.57 K/mm3 (0.84-5.20); LYMPHOCYTES PERCENT AUTO 5 % (21-46); MONOCYTES ABSOLUTE AUTO 0.17 K/mm3 (0.16-1.47); MONOCYTES PERCENT AUTO 2 % (4-13); Mean Corpuscular HGB 25.1 pg (26.0-34.0); Mean Corpuscular HGB Conc 29.9 g/dL (31.5-36.5); Mean Corpuscular Volume 84 fL (80-100); Mean Platelet Volume 11.1 fL (9.1-12.4); NEUTROPHILS ABSOLUTE AUTO 10.46 K/mm3 (1.96-9.15); NEUTROPHILS PERCENT AUTO 92 % (41-73); Platelet Count 150 K/mm3 (150-400); RDW Coefficient Variation 16.5 % (11.7-14.2); RDW Standard Deviation 51.3 fL (35.1-46.3); Red Blood Cell Count 4.46 M/mm3 (3.80-5.20); White Blood Cell Count 11.32 K/mm3 (4.00-11.30)
[2022-11-17 05:55] LABS: Albumin, Blood 3.3 g/dL (3.4-5.0); Albumin/Globulin Ratio 0.8 (0.8-1.8); Bilirubin, Total 0.4 mg/dL (0.1-1.0); Bun/Creatinine Ratio 18.5 (12.0-20.0); Calcium, Blood 9.7 mg/dL (8.5-10.1); Creatinine, Blood 0.65 mg/dL (0.40-1.00); Globulin, Blood 3.9 g/dL (2.2-4.0); Magnesium, Blood 3.2 mg/dL (1.6-2.4); Potassium, Blood 4.3 mmol/L (3.5-5.5); Total Protein, Blood 7.2 g/dL (6.4-8.2)
--- NOTE | 2022-11-17 06:03 | NUR ---
SHIFT SUMMARY/PT TRANSFER PT TO PCU AT 0522. PT ON BIPAP AT 16/5 AND 45% FIO2. HR STABLE. BP STABLE. NO CP OR PRESSURE REPORTED. HISTORY IS LIMITED D/T PT'S WOB. PT LETHARGIC. OXYGEN SATURATION MAINTAINED ABOVE 92%. PT CONTINENT OF URINE, ABLE TO USE BED BALDWIN. CALL LIGHT WITHIN REACH. BED ALARM IN PLACE. WILL CONT TO MONITOR UNTIL REPORT GIVEN TO DAYSHIFT RN.
[2022-11-17 14:12] LABS: Base Excess Venous 13.8 mmol/L; Bicarbonate Venous 35.3 mmol/L (24.0-30.0); PCO2 Venous 64.1 mmHg (38-42); pH Blood Venous 7.39 (7.34-7.37)
--- NOTE | 2022-11-17 19:07 | NUR ---
SHIFT SUMMARY: PT A&Ox4, ANXIOUS AT TIMES BUT EASILY CONSOLED, COOPERATIVE W/CARE, USING CALL LIGHT APPROPRIATELY. PT CONTINUES ON BIPAP, / 35%, TOLERATING WELL. PT TAKES TWO BREAKS FROM BIPAP, PLACED ON NC AT 4 L/MIN, TOLERATES FOR APPROX 20 MIN BEFORE REQUESTING TO BE PLACED BACK ON BIPAP. SR ON MONITOR, RATE IN 90s. MINIMAL PO INTAKE TODAY D/TO BIPAP. PT MEDICATED FOR C/O HEADACHE, SWALLOWS PILLS W/WATER W/OUT DIFFICULTY. PT ASSISTED W/BEDPAN W/OUT INCIDENT. PT REPOSITIONED AND ORAL CARE PROVIDED PER PROTOCOL. REPORT GIVEN TO COLE DAVIES TO ASSUME CARE OF PT.
[2022-11-17] MEDS ORDERED: ZOLP10 PO (22:41)
--- NOTE | 2022-11-17 22:50 | NUR ---
CALL TO PHYSICIAN NOTIFIED PHYSICIAN OF HTN. SBP 190-200. ORDERS PLACED.
--- NOTE | 2022-11-17 22:50 | NUR ---
CALL TO PHYSICIAN NOTIFIED PHYSICIAN OF HTN. SBP 190-200. DISCUSSED PT's INCREASED ANXIETY. ORDERS PLACED.
--- NOTE | 2022-11-18 01:00 | NUR ---
NOTIFIED PHYSICIAN PHYSICIAN NOTIFIED THAT PT's BP REMAINED ELEVATED. AND DISCUSSED PT'S INCREASED, CONSISTANT LEVEL OF ANXIETY AND WORK OF BREATHING. ORDERS PLACED.
--- NOTE | 2022-11-18 02:20 | NUR ---
NOTIFIED PHYSICIAN UPDATED PHYSICIAN OF PT's PERSISTANT HTN AND WORK OF BREATHING. ORDERS PLACED FOR VBG AND CHEST X-RAY.
[2022-11-18 02:45] LABS: Hematocrit 39.7 % (33.0-51.0); Hemoglobin 12.1 g/dL (11.5-16.0); Mean Corpuscular HGB Conc 30.5 g/dL (31.5-36.5); Mean Corpuscular Volume 82 fL (80-100); Mean Platelet Volume 10.6 fL (9.1-12.4); Platelet Count 179 K/mm3 (150-400); RDW Coefficient Variation 16.7 % (11.7-14.2); Red Blood Cell Count 4.84 M/mm3 (3.80-5.20); White Blood Cell Count 11.09 K/mm3 (4.00-11.30)
[2022-11-18 02:56] LABS: Base Excess Venous 11.4 mmol/L; Bicarbonate Venous 33.5 mmol/L (24.0-30.0); PCO2 Venous 52.8 mmHg (38-42); pH Blood Venous 7.44 (7.34-7.37)
--- NOTE | 2022-11-18 03:00 | NUR ---
NOTIFIED PHYSICIAN UPDATED PHYSICIAN THAT D/T VBG RESULTS THAT THIS RN AND RT DISCUSSED, THIS RN TRIALED TAKING PT OFF BIPAP AND ONTO NC. PT'S WORK OF BREATHING INCREASED, ANXIETY INCREASED, PT STATED THAT SHE COULD NOT BREATH AND NEEDED OXYGEN, AND SpO2 DROPPED TO 89%. PLACED PT BACK ON BIPAP. AFTER BEING PLACED BACK ON BIPAP, PT's WORK OF BREATHING REMAIN JUST INCREASED IT WAS WHEN SHE OF ON BIPAP THE FIRST TIME. BP STILL ELEVATED WITH SBP 169. PT HAS DENIED CP/PRESSURE THROUGHOUT ENTIRE SHIFT. SHE STATES THAT SHE JUST FEELS LIKE SHE CAN NOT BREATH. PHYSICIAN STATED THAT THEY WILL COME TO BEDSIDE.
[2022-11-18 03:09] LABS: Alanine Aminotransfer (ALT/SGP 18 U/L (12-78); Albumin, Blood 3.5 g/dL (3.4-5.0); Albumin/Globulin Ratio 0.8 (0.8-1.8); Alk Phos 97 U/L (50-136); Anion Gap 5 mmol/L (6-16); Aspartate Aminotrans (AST/SGOT 21 U/L (12-37); Bilirubin, Total 0.7 mg/dL (0.1-1.0); Blood Urea Nitrogen 23 mg/dL (8-24); Bun/Creatinine Ratio 37.5 (12.0-20.0); CHOL/HDL RATIO 2.8; CO2, Blood 34 mmol/L (21-32); Calcium, Blood 9.9 mg/dL (8.5-10.1); Chloride, Blood 98 mmol/L (98-108); Cholesterol 203 mg/dL (50-200); Creatinine, Blood 0.61 mg/dL (0.40-1.00); Globulin, Blood 4.3 g/dL (2.2-4.0); Glomerular Filtration Rate 100 (60-); Glucose, Blood 169 mg/dL (70-99); HDL Cholesterol 72 mg/dL (>39); LDL/HDL RATIO 1.5; Low Density Lipoprotein Chol 107 mg/dL (0-110); Sodium, Blood 137 mmol/L (136-145); Total Protein, Blood 7.8 g/dL (6.4-8.2); Triglycerides 122 mg/dL (30-160); Very Low Density Lipoprot Chol 24 mg/dL (6-32)
--- NOTE | 2022-11-18 03:10 | NUR ---
PHYSICIAN AT BEDSIDE INSTRUCTED TO TRANSFER PT TO ICU, ORDERS TO BE PLACED.
--- NOTE | 2022-11-18 04:50 | NUR ---
TRANSFER TO ICU10/SHIFT SUMMARY SEE PREVIOUS NOTES. PT A&Ox4, COMMUNICATES NEEDS APPROPRIATELY, IS EXTREMELY ANXIOUS, MANAGING PER EMAR AND THERAPEUTIC COMMUNICATION. BP ELEVATED, MANAGING PER EMAR, ST 100-100's, PT DENIES CP/PRESSURE. SpO2> 92% ON BIPAP 16/8 35%FiO2, RT INCREASED SETTINGS TO 18/8 35%FiO2. PT HAD INCREASED WORK OF BREATHING WITH RR 35-45, STATING THAT SHE CAN NOT BREATH AND NEEDS OXYGEN. RT NOTIFIED AND AT BEDSIDE THROUGHOUT SHIFT. PT CONTINENT OF URINE, USES BEDPAN. NO BM THIS SHIFT. REPORT GIVEN TO COLE HOPE AND TRANSFERED PT TO ICU AT APPROXIMATELY 0340. PT TRANSFERED VIA HOSPITAL BED BY THIS RN, JUVENILE OFFICER, AND RT MANAGING BIPAP. ALL PT BELINGINGS WERE PRESENT. PT WAS SLIDE OVER FROM PCU HOSPITAL BED TO ICU HOSPITAL BED VIA 4 CLINICAL STAFF MEMBERS, PT CONNECTED TO ALL NEEDED MONITORS. THIS RN ATTEMPTED TO NOTIFY PF TRANSFER, HE DID NOT ANSWER AND WAS NOT ABLE TO RECIEVE VOICEMAIL. NOTIFIED COLE HOPE AND PROVIDED HER WITH HUSBANDS PHONE NUMBER.
[2022-11-18 04:56] LABS: Source, Urine Foley catheter
[2022-11-18 04:59] LABS: Bilirubin, Urine Neg (Neg); Blood, Urine 5+ (Neg); Glucose Qualitative, Urine Neg (Neg); Ketones, Urine 1+ (Neg); Leukocyte Esterase, Urine Neg (Neg); Nitrite, Urine Neg (Neg); Protein, Urine 2+ (Neg); Urobilinogen, Urine NORM (Normal); pH, Urine 6.5 (5.0-8.0)
[2022-11-18 05:34] LABS: Appearance, Urine Hazy (Clear); Color, Urine Yellow (P-Yellow)
[2022-11-18 05:36] LABS: Bacteria Few /hpf; Hyaline Casts 0-2 /lpf (0-2); Red Blood Cells, Urine 25-50 /hpf (0-2); Squamous Epithelial Cells Few /hpf (Few); White Blood Cells, Urine 0-2 /hpf (0-5)
--- NOTE | 2022-11-18 06:34 | NUR ---
0350 PATIENT ARRIVED TO ICU 10 VIA BED FROM PCU WITH INCREASED SOB AND ANXIETY. BIPAP IN PLACE WITH RT AT BEDSIDE. PATIENT HAVING DIFFICULTY LAYING STILL AND PULLING AT BIPAP AND ATTEMPTING TO GET OUT OF BED. PRECEDEX STARTED AND TITRATED UP TO 0.7 MCG. AND PRN ATIVAN GIVEN. PATIENT NOW RESTING QUIETLY WITH BIPAP 18/8 FIO2 35% IN PLACE, RESP CONTINUE TO BE 35-40 DESPITE RESTING QUIETLY. CONTINUES TO HAVE RESTLESS LEGS AT TIMES. ANGELA PLACED DUE INCREASED WORK OF BREATHING WITH SLIGHT MOVEMENT.
--- NOTE | 2022-11-18 08:36 | NUR ---
Assumed care of pt at 0715 Bedside report recieved from COLE Murillo. Pt appears to be resting on BIPAP 18/8 35% with Precedex drip infusing and Ativan iv x1 dose. Lung sound severely diminshed throughout. Pt not answerein questions or following commands but does move all extremeties and repositions with minimal assistance. Contacted Matt to inform him of transfer to ICU. Also spoke with son Bill and provided update. Pt lives at home with and son. Contacted Dr. Perez regarding pt's continued work of breathind despite interventions, order recived for Pulmonary consult. Dr. Styles notified verbally by this RN of new consult. Also notified both MD's of pt's inability to take PO's due to SOB and BIPAP dependence. RN to continue to monitor.
--- NOTE | 2022-11-18 10:15 | NUR ---
Dr. Styles to bedside Pulmonary consult, plan: wean Precedex down as able, continue to support breathing with bipap, continue steroids. Dr. Styles updated pt's Matt and son Bill at bedside. Pt currently resting, V/S stable, BIPAP settings unchanged. RN to continue to monitor
--- NOTE | 2022-11-18 15:56 | NUR ---
Dr. Styles to bedside MD re-evaluated breathing on BIPAP and mental status. Advised Precedex down to 0.5 and PRN Ativan IV being given every 4-5 hours. BIPAP settings unchanged. Tidal Volumes improving, now 300-375. Pt still feels very SOB and states "I can't breathe" occasionally but admits improvement with medication. Resting comfortably with assistance to reposition every 2 hours and PRN. to bedside to visit. Updated on current condition and POC. He verbalizes understanding and agrees with plan. RN to continue to monitor
--- NOTE | 2022-11-18 19:50 | NUR ---
ASSUMED CARE PT IS A&O X3; DIFFICULT TO ASSESS D/T BIPAP AND PT'S ANXIETY. SPO2 >92% ON BIPAP 18/8/40%;RR IN THE 30'S. SBP IN THE 130-150'S. PRECEDEX GTT AT 0.7MCG/KG/MIN. INITIALLY AT 0.5MCG/KG/MIN, BUT UPON ASSUMPTION OF CARE PT WAS INCREASINGLY ANXIOUS/CRYING OUT, AND INCREASING RESPIRATORY RATE IN THE 40'S. RESPIRATORY RATE HAS SINCE COME DOWN AND PT IS CURRENTLY SLEEPING. ANGELA CATHETER IS PATENT AND DRAINING TO GRAVITY.
[2022-11-19 00:21] LABS: Hematocrit 39.5 % (33.0-51.0); Hemoglobin 11.8 g/dL (11.5-16.0); Mean Corpuscular HGB 25.1 pg (26.0-34.0); Mean Corpuscular HGB Conc 29.9 g/dL (31.5-36.5); Mean Corpuscular Volume 84 fL (80-100); Mean Platelet Volume 11.7 fL (9.1-12.4); Platelet Count 179 K/mm3 (150-400); RDW Coefficient Variation 17.1 % (11.7-14.2); RDW Standard Deviation 52.3 fL (35.1-46.3); White Blood Cell Count 9.86 K/mm3 (4.00-11.30)
[2022-11-19 00:44] LABS: Albumin, Blood 3.4 g/dL (3.4-5.0); Albumin/Globulin Ratio 0.8 (0.8-1.8); Bilirubin, Total 0.3 mg/dL (0.1-1.0); Bun/Creatinine Ratio 64.5 (12.0-20.0); Calcium, Blood 10.3 mg/dL (8.5-10.1); Creatinine, Blood 0.61 mg/dL (0.40-1.00); Globulin, Blood 4.1 g/dL (2.2-4.0); Potassium, Blood 4.6 mmol/L (3.5-5.5); Total Protein, Blood 7.5 g/dL (6.4-8.2)
[2022-11-19 01:01] LABS: Magnesium, Blood 2.9 mg/dL (1.6-2.4)
[2022-11-19 02:30] LABS: PCO2 Arterial 64.1 mmHg (35-45); PO2 Arterial 79.1 mmHg (80-100); pH Blood Arterial 7.31 (7.35-7.45)
--- NOTE | 2022-11-19 03:34 | NUR ---
UPDATE PT STARTED DESATURATING AND BECAME TACHYCARDIC WHILE THIS RN WAS COMING BACK FROM CT WITH ANOTHER PT PER REPORT. BY THE TIME THIS RN ARRIVED TO THE UNIT PT WAS GETTING PREPPED TO BE INTUBATED. PT HR MOVED INTO AFIB W/ RVR BEFORE INTUBATION AND CURRENTLY HAS AMIODARONE GTT RUNNING. 5MCG/KG/MIN OF LEVOPHED, 0.7 OF PRECEDEX, AND 50MCG/KG/MIN OF PROPOFOL CURRENTLY BEING INFUSED. RT HAVING DIFFICULTY W/ PT'S TIDAL VOLUMES BEING UNDER 200. DR SEVILLA CONSULTED BY RT. PROCEDURE 0031: 10MG OF ETOMIDATE GIVEN 0032: 80MG OF ROCURONIUM GIVEN 0034: ETT IN W/ 7.5 ETT @ 23CM AT GUMS 0038: OG IN 0033: NORMAL SALINE BOLUS GIVEN 0036: LEVOPHED STARTED @ 5MCG 0100: CENTRAL LINE IN
[2022-11-19 04:18] LABS: BASOPHILS ABSOLUTE AUTO 0.01 K/mm3 (0.00-0.23); BASOPHILS PERCENT AUTO 0 % (0-2); EOSINOPHILS PERCENT AUTO 0 % (0-6); Hematocrit 35.3 % (33.0-51.0); Hemoglobin 10.7 g/dL (11.5-16.0); IMMATURE GRAN ABSOLUTE AUTO 0.06 K/mm3 (0.00-0.10); IMMATURE GRAN PERCENT AUTO 1 % (0-1); LYMPHOCYTES ABSOLUTE AUTO 0.48 K/mm3 (0.84-5.20); LYMPHOCYTES PERCENT AUTO 5 % (21-46); MONOCYTES ABSOLUTE AUTO 0.34 K/mm3 (0.16-1.47); MONOCYTES PERCENT AUTO 3 % (4-13); Mean Corpuscular HGB 25.4 pg (26.0-34.0); Mean Corpuscular HGB Conc 30.3 g/dL (31.5-36.5); Mean Corpuscular Volume 84 fL (80-100); NEUTROPHILS ABSOLUTE AUTO 9.18 K/mm3 (1.96-9.15); NEUTROPHILS PERCENT AUTO 91 % (41-73); Platelet Count 172 K/mm3 (150-400); RDW Coefficient Variation 17.2 % (11.7-14.2); RDW Standard Deviation 52.5 fL (35.1-46.3); Red Blood Cell Count 4.22 M/mm3 (3.80-5.20); White Blood Cell Count 10.07 K/mm3 (4.00-11.30)
[2022-11-19 04:37] LABS: Bun/Creatinine Ratio 58.7 (12.0-20.0); Calcium, Blood 9.3 mg/dL (8.5-10.1); Creatinine, Blood 0.73 mg/dL (0.40-1.00); Potassium, Blood 3.8 mmol/L (3.5-5.5)
--- NOTE | 2022-11-19 05:30 | NUR ---
UPDATE SON WAS NOTIFIED ABOUT PT'S CHANGE IN CONDITION AND THAT THE PT IS NOW ON THE VENTILATOR. SON TOLD THIS RN THAT HE WOULD GO WAKE HIS FATHER UP AND INFORM HIM.
--- NOTE | 2022-11-19 07:34 | NUR ---
SHIFT SUMMARY PT IS CURRENTLY INTUBATED AND SEDATED. VENTILATOR SETTINGS CURRENTLY BEING TINKERED W/ BY RT. DR SEVILLA AT BEDSIDE. PROPOFOL @ 40MCG/KG/MIN. AMIODARONE @ 1MG/MIN, LEVOPHED @ 5MCG/KG/MIN. SPO2 >92%, MAP >65. SEDATION REQUIRED TITRATION UP FOR VENTILATOR COMPLIANCE. HR NOW IN 120-130'S, DOWN FROM 150-170 BEFORE AMIODARONE INITIATION. ANGELA PATENT AND DRAINING TO GRAVITY.
--- NOTE | 2022-11-19 17:28 | NUR ---
END OF SHIFT SUMMARY NEURO: PT REMAINS ABLE TO FOLLOW COMMANDS, MINIMAL ANXIETY, MOUTHS "WHERE AM I?", NODS APPROPRIATELY WHEN RE-ORIENTED, RECOGNIZES FAMILY. KETAMINE INFUSING AT 0.2-0.25. OK TO ADD PRECEDEX PER MD. CARDIAC: ATRIAL FIB THIS AM, CONVERTED TO SR AT 1405, REMAINS ON AMIODARONE AT 0.5. PER DR. PINZON, D/C AMIODARONE AFTER INFUSING X24 HOURS. BP REMAINS STABLE OFF LEVOPHED. MORE HYPERTENSIVE THIS AFTERNOON WHILE FAMILY AT BEDSIDE AND DURING CARE, CONTINUE TO MONITOR. RESP: VENT SETTINGS REMAIN SPONTANEOUS PT TOLERATES THIS BETTER. TIDAL VOLUMES 350-550, FIO2 TITRATED DOWN ABLE. LUNG SOUNDS IMPROVING WITH SLIGHT EXPIRATORY WHEEZING THROUGHOUT. GI: OGT, TF ORDERED TO START AT 25ML/HR WITH A GOAL OF 35ML/HR. PT DENIES NAUSEA, BS HYPOACTIVE BUT PRESENT. : ANGELA TO GRAVITY DRAINING CLEAR YELLOW URINE. SKIN: UNCHANGED. TURNED EVERY 2 HOURS TO MAINTAIN SKIN INTEGRITY. IV: CENTRAL LINE TO RIGHT IJ, DRESSING CHANGED. 2 PORTS INFUSING, 2 CLAMPED. PIV TO RIGHT HAND, SL. PIV TO RIGHT AC, SL. BOTH PIV'S FLUSH WELL. , SON AND GRANDSON TO BEDSIDE TO VISIT. UPDATED ON POC, ALL VERBALIZE UNDERSTANDING.
--- NOTE | 2022-11-19 19:30 | NUR ---
ASSUMED CARE PATIENT IS INTUBATED W/LIGHT SEDATION. FOLLOWING COMMANDS
[2022-11-20 03:30] LABS: Hematocrit 31.2 % (33.0-51.0); Hemoglobin 9.7 g/dL (11.5-16.0); Mean Corpuscular HGB 24.9 pg (26.0-34.0); Mean Corpuscular HGB Conc 31.1 g/dL (31.5-36.5); Mean Corpuscular Volume 80 fL (80-100); Platelet Count 120 K/mm3 (150-400); RDW Coefficient Variation 17.8 % (11.7-14.2); RDW Standard Deviation 51.3 fL (35.1-46.3); Red Blood Cell Count 3.89 M/mm3 (3.80-5.20); White Blood Cell Count 10.83 K/mm3 (4.00-11.30)
[2022-11-20 03:50] LABS: Magnesium, Blood 2.6 mg/dL (1.6-2.4)
[2022-11-20 04:30] LABS: Bilirubin, Total 0.5 mg/dL (0.1-1.0); Bun/Creatinine Ratio 54.9 (12.0-20.0); Calcium, Blood 9.2 mg/dL (8.5-10.1); Creatinine, Blood 0.73 mg/dL (0.40-1.00); Globulin, Blood 3.1 g/dL (2.2-4.0); Potassium, Blood 3.5 mmol/L (3.5-5.5); Total Protein, Blood 6.1 g/dL (6.4-8.2)
--- NOTE | 2022-11-20 05:00 | NUR ---
LABS CALLED TO DR. CURRY ORDERS RECEIVED
--- NOTE | 2022-11-20 06:25 | NUR ---
PATIENT INTUBATED/SEDATED. KETAMINE AND PRECEDEX FOR SEDATION. PATIENT RESPONDS TO VERBAL COMMANDS. PATIENT WITH EPISODES OF ANXIETY. ANGELA IN PLACE - ADEQUATE OUTPUT. NO BM - PASSING GAS REPORT TO ONCOMING RN
--- NOTE | 2022-11-20 07:16 | NUR ---
ASSUMED CARE OF PT AT 0700 SLEPT OFF AND ON THROUGHT THE NIGHT, KETAMINE AND PRECEDEX CONTINUED WITH A GOAL OF LIGHT SEDATION. PT IS A/O, FOLLOWING COMMANDS. ON SPONTANEOUS VENT SETTINGS WITH A PEEP OF 10 (DOWN FROM 15), FIO2 AT 35%. SR IN THE 90'S, BP WNL. TF AT GOAL OF 35ML/HR, PT TOLERATING WELL. PASSING FLATUS BUT NO BM. K PHOS INFUSING. SOFT BILAT WRIST RESTRAINTS REMAIN IN PLACE. CENTRAL LINE TO RIGHT NECK, DRESSING CHANGE X2 LAST SHIFT DUE TO OOZING. RN TO CONTINUE TO MONITOR.
--- NOTE | 2022-11-20 19:36 | NUR ---
END OF SHIFT SUMMARY NEURO: PT A/O X4 THROUGHOUT SHIFT. REQUIRED INCREASED SEDATION AND PARALYTIC TOWARD END OF SHIFT WHEN WORK OF BREATHING AND PT NOT VENTILATING ADEQUATELY. CARDIAC: SR-ST. BP WNL UNTIL SEDATION AND PARALYTIC. BP DROPPED TO THE 70'S, LEVOPHED STARTED. RESP: SPONTANEOUS SETTINGS UNTIL PT BACK TO BED, SEVERELY INCREASED WORK OF BREATHING, VENT SETTINGS CHANGED. PT NOW ON BILEVEL. GI: OGT, TF INFUSING AT 35ML/HR. PT TOLERATING WELL. STOPPED WHEN PARALYTIC STARTED. : JULIO CÉSAR, TeodoroO CLEAR YELLOW, 400ML OUT SKIN: INTACT, OOB TO CHAIR X5 HOURS USING WALKER TO TRANSFER. SEVERAL STEPS TAKEN. IV: QUAD LUMEN CATH TO RIGHT IJ. PIVX2 TO RIGHT HAND AND RIGHT AC. SEE FLOWSHEET FOR CURRENT MEDICATIONS. , SON, DAUGHTER AND GRANDCHILDREN IN TO VISIT TODAY. ALL UPDATED ON POC. SON GUNNAR NOTIFIED OF CHANGES TO PT CONDITION THIS EVENING.
[2022-11-21 05:04] LABS: Hematocrit 30.8 % (33.0-51.0); Hemoglobin 9.7 g/dL (11.5-16.0); Mean Corpuscular HGB 25.3 pg (26.0-34.0); Mean Corpuscular HGB Conc 31.5 g/dL (31.5-36.5); Mean Corpuscular Volume 80 fL (80-100); Platelet Count 139 K/mm3 (150-400); RDW Coefficient Variation 18.5 % (11.7-14.2); RDW Standard Deviation 53.7 fL (35.1-46.3); Red Blood Cell Count 3.84 M/mm3 (3.80-5.20); White Blood Cell Count 12.87 K/mm3 (4.00-11.30)
[2022-11-21 05:44] LABS: Magnesium, Blood 3.7 mg/dL (1.6-2.4)
[2022-11-21 05:52] LABS: Bun/Creatinine Ratio 45.8 (12.0-20.0); Calcium, Blood 8.5 mg/dL (8.5-10.1); Creatinine, Blood 1.07 mg/dL (0.40-1.00); Phosphorus, Blood 4.5 mg/dL (2.5-4.9); Potassium, Blood 3.9 mmol/L (3.5-5.5)
--- NOTE | 2022-11-21 06:28 | NUR ---
PATIENT IS INTUBATED, SEDATED AND PARALYZED. DOES NOT RESPOND TO VOICE OR PAIN. ONLY POSITIVE REFLEX IS PUPILLARY CONSTRICTION. BIS SEDATION IMPROVED WITH PROPOFOL ADDED- 67 AT PRESENT. PRN ATIVAN AND FENTANYL GIVEN. VSS. UO 350 X12 HOURS. O2SAT DROPPED ONCE TO 60'S AT 0345- VENT SETTINGS MODIFIED TO ACPC, FI02 70%, PEEP 13. O2SAT WNL POST CHANGE. CONTINUE TO WEAN DOWN VENT SETTINGS APPROPRIATE.
--- NOTE | 2022-11-21 09:43 | NUR ---
DR. SUBRAMANIAN AT THE BEDSIDE AND GAVE ORDERS TO RESTART TUBE FEED PER PREVIOUS PERAMETERS. HE ALSO GAVE INSTRUCTIONS TO TRIAL NIMBEX OFF, BUT MAKE SURE PT IS WELL SEDATED WHILE TRIALLING. PROPOFOL INCREASED BECAUSE DESPITE PREVIOUS INCREASES AND PRN ATIVAN BIS IS STILL READING IN THE 60S. NIMBEX NOW OFF AND MONITORING CLOSELY.
--- NOTE | 2022-11-21 12:42 | NUR ---
REASSESSMENT PT REMAINS INTUBATED AND SEDATED. SHE HAS DONE WELL AND MAINTAINED HER LUNG VOLUMES WITH THE NIMBEX OFF. SHE HAD ONE INCIDENT WHERE HER VOLUMES SUDDENLY DROPPED AFTER THE INLINE SUCTION WAS ON FOR LESS THAN 5 SECONDS JUST TO CLEAR SOME SPUTUM IN THE LINE. DR. SUBRAMANIAN AND RT CAME TO THE BEDSIDE AND PT SPONTANEOUSLY STARTED VENTILATING APPROPRIATELY AFTER ABOUT 1 MINUTE. LUNGS WERE VERY WHEEZY THIS AM, WHEEZE IS MOSTLY GONE NOW, BUT AIR MOVEMENT CAN STILL BE HEARD, JUST DIM. SR, REMAINS ON 3MCG/MIN LEVOPHED FOR HYPOTENSION. TUBE FEED RESTARTED THIS AM AND PT TOLERATING. ANGELA WITH LIGHT YELLOW URINE. DR. SUBRAMANIAN UPDATED PT'S AND SON AT THE BEDSIDE. PLAN TO START DECREASING SEDATION THIS AFTERNOON.
--- NOTE | 2022-11-21 14:51 | NUR ---
VTACH PT HAD ONE MINUTE RUN OF VTACH, RATE OF 120. BP STABLE. DR. SUBRAMANIAN NOTIFIED. CONTINUE TO MONITOR.
--- NOTE | 2022-11-21 17:05 | NUR ---
SHIFT SUMMARY PT REMAINS INTUBATED AND SEDATED. SEDATION SLOWLY TITRATED DOWN THIS AFTERNOON AND PT HAS TOLERATED SO FAR. SHE FOLLOWS COMMANDS TO SQUEEZE HANDS, BUT NOT OPENING HER EYES. LEVOPHED TITRATED OFF THIS AFTERNOON. LUNGS HAVE SOME EXPIRATORY WHEEZES THIS EVENING. TOLERATING TUBE FEED. PASSING GAS, BUT NO BM. ANGELA WITH LIGHT YELLOW URINE. PT'S WAS AT THE BEDSIDE AGAIN THIS EVENING AND WAS UPDATED BY THIS RN.
--- NOTE | 2022-11-21 19:00 | NUR ---
ASSUMED CARE ASSUMED CARE OF PATIENT. REMAINS INTUBATED- AC/PC RATE 16, PI 26, PEEP 8, FIO2 65%. SEDATED WITH PROPOFOL AT 20MCG/KG/MIN AND KETAMINE 1MG/KG/HR. BILATERAL SOFT WRIST RESTRAINTS IN PLACE TO PREVENT SELF-EXTUBATION. OG WITH VITAL HIGH PROTEIN. ANGELA PATENT AND DRAINING TO GRAVITY. MONITOR SHOWS ST, RATE 110-115. BP STABLE. SEE SHIFT ASSESSMENT FOR FULL ASSESSMENT.
[2022-11-22 05:30] LABS: Hematocrit 29.4 % (33.0-51.0); Mean Corpuscular HGB 25.1 pg (26.0-34.0); Mean Corpuscular HGB Conc 30.6 g/dL (31.5-36.5); Mean Corpuscular Volume 82 fL (80-100); Platelet Count 128 K/mm3 (150-400); RDW Coefficient Variation 19.1 % (11.7-14.2); RDW Standard Deviation 56.6 fL (35.1-46.3); Red Blood Cell Count 3.59 M/mm3 (3.80-5.20); White Blood Cell Count 12.44 K/mm3 (4.00-11.30)
[2022-11-22 05:34] LABS: Mean Platelet Volume 12.5 fL (9.1-12.4)
[2022-11-22 05:53] LABS: Bun/Creatinine Ratio 40.2 (12.0-20.0); Calcium, Blood 8.3 mg/dL (8.5-10.1); Creatinine, Blood 1.79 mg/dL (0.40-1.00); Magnesium, Blood 3.4 mg/dL (1.6-2.4); Phosphorus, Blood 3.3 mg/dL (2.5-4.9)
--- NOTE | 2022-11-22 06:29 | NUR ---
SHIFT SUMMARY NO ACUTE CHANGES DURING NOC. REMAINS INTUBATED AND SEDATED. PROPOFOL AT 20MCG/KG/MIN. KETAMINE INFUSING AT 1MG//KG/HR PER ORDER. PT WITHDRAWS EXTREMITIES TO NOXIOUS STIMULI AND WAS ABLE TO SQUEEZE HANDS AND WIGGLE FINGERS/TOES WEAKLY TO COMMAND. DOES NOT OPEN EYES. BILATERAL SOFT WRIST RESTRAINTS IN PLACE TO PREVENT SELF-EXTUBATION. VSS. OG WITH TUBE FEEDING AT GOAL RATE OF 35MLS/HR. ANGELA PATENT AND DRAINING TO GRAVITY. MEDICATED WITH FENTANYL 50MCG IV X 1 FOR NOTED FACIAL GRIMACING. WILL REPORT TO ONCOMING RN WHEN AVAILABLE.
--- NOTE | 2022-11-22 12:15 | NUR ---
REASSESSMENT PROPOFOL TITRATED OFF THIS AM AND PT TOLERATED IT OFF FOR 2.5 HOURS UNTIL HER RR INCREASED TO UPPER 20S AND PT GOT VERY RESTLESS IN BED. PROPOFOL RESTARTED AND PT SETTLED BACK DOWN. DURING THE TIME WITH PROPOFOL OFF PT WAS ABLE TO OPEN HER EYES AND SQUEEZE HANDS APPROPRIATELY. DISCUSSED SEDATION WITH DR. SUBRAMANIAN TO SEE IF HE WANTED KETAMINE TITRATED DOWN AT ALL AND HE GAVE INSTRUCTIONS TO KEEP KETAMINE WHERE IT IS AND TITRATE PROPOFOL. LUNGS ARE VERY DIM, R WORSE THAN L, EXPIRATORY WHEEZES. SINUS TACH IN LOW 100S. HYPERTENSIVE WITH PROPOFOL OFF. TOLERATING TUBE FEED. PT'S WAS AT THE BEDSIDE AND WAS UPDATED.
--- NOTE | 2022-11-22 17:04 | NUR ---
SHIFT SUMMARY PT REMAINS INTUBATED AND SEDATED. PROPOFOL WAS TURNED OFF THIS MORNING, BUT RESTARTED WHEN PT BECAME RESTLESS. PT'S BP HAD INCREASED WHILE PROPFOL WAS OFF WELL. INITIALLY IT CAME BACK DOWN WHEN THE PROPOFOL WAS RESTARTED, BUT HAS STEADILY CLIMBED THROUGHOUT THE AFTERNOON. PRN FENTANYL AND ATIVAN GIVEN WITH NO EFFECT. PROPOFOL INCREASED AND DR. SUBRAMANIAN NOTIFIED. ORDERS TO RESTART HOME DOSE OF LISINOPRIL AND GIVE DOSE NOW. PT IS SR WITH RATE IN THE 90S. TOLERATING TUBE FEED, ABDOMEN SOFT. ANGELA WITH YELLOW URINE. PT'S AT THE BEDSIDE AND UPDATED.
--- NOTE | 2022-11-22 19:30 | NUR ---
ASSUMED CARE PATIENT INTUBATED/SEDATED.
[2022-11-23 03:37] LABS: Hematocrit 29.6 % (33.0-51.0); Hemoglobin 9.2 g/dL (11.5-16.0); Mean Corpuscular HGB 25.8 pg (26.0-34.0); Mean Corpuscular HGB Conc 31.1 g/dL (31.5-36.5); Mean Corpuscular Volume 83 fL (80-100); NRBC ABSOLUTE 0.02 K/mm3 (0.00-0.02); NRBC Auto 0.2 /100 WBC (0.0-0.2); Platelet Count 126 K/mm3 (150-400); RDW Coefficient Variation 19.5 % (11.7-14.2); RDW Standard Deviation 57.9 fL (35.1-46.3); Red Blood Cell Count 3.57 M/mm3 (3.80-5.20); White Blood Cell Count 12.74 K/mm3 (4.00-11.30)
[2022-11-23 03:39] LABS: Mean Platelet Volume 12.3 fL (9.1-12.4)
[2022-11-23 03:59] LABS: Bun/Creatinine Ratio 51.6 (12.0-20.0); Calcium, Blood 8.4 mg/dL (8.5-10.1); Creatinine, Blood 1.55 mg/dL (0.40-1.00); Magnesium, Blood 3.2 mg/dL (1.6-2.4)
--- NOTE | 2022-11-23 06:38 | NUR ---
PATIENT REMAINS INTUBATED/SEDATED. RESPONDS TO PAIN. PROPOFOL WEANED TO 15MCG/KG/HR. PATIENT BECAME TACHYPNEIC AND STATS FELL TO 88% OVER NIGHT. PATIENT RECOVERED WITH VENT CHANGES MADE BY RT. FRAZIER IN PLACE WITH ADEQUATE OUTPUT. TUBEFEED CONTINUES AT GOAL RATE. NO BM.
--- NOTE | 2022-11-23 07:00 | NUR ---
ASSUME CARE: I have assumed care of this patient.
--- NOTE | 2022-11-23 18:45 | NUR ---
SHIFT SUMMARY: PT STARTED SHIFT AND 1MG/KG/HR KETAMINE AND 15MCG/KG/MIN. GRADUALLY TITRATED TO 35MCG/KG/MIN, R/T RESTLESSNESS. 1 DOSE OF PRN ATIVAN AND 3 DOSES OF PRN FENTAYNL GIVEN TO FACILITATE ADEQUATE SEDATION. 1 DOSE OF PRN HYDRALIZE GIVEN R/T SBP >170. MULTIPLE VENT CHANGES THROUGHOUT SHIFT. SEE RT FLOWSHEET. MILK OF MAG ADMINSTERED PT HAS NOT HAD A DOCUUMENTED BOWEL MOVEMENT THIS ADMISSION. AT BEDSIDE MIDDAY, UPDATED BY DOCTOR WATSON.
--- NOTE | 2022-11-23 22:38 | NUR ---
PT WAS TURNED DURING BATH AND DID NOT TOLERATE AT ALL. SHE STOPPED PULLING HER TIDAL VOLUMES AND DESATURATED. FIO2 WAS INCREASED AND SATURATIONS RECOVERED RATHER QUICKLY BUT PT WAS STILL NOT PULL TV AND UPON AUSCULATION WAS NOT MOVING MUCH AIR. TUBE PLACEMENT WAS CHECKED AND HAD NOT CHANGED. RT WAS CALLED. PT GIVEN FENTANYL AND PROPOFOL GTT WAS INCREASED. PT BREATH SOUNDS HAD DIMINISHED SIGNIFICANTLY SINCE INITIAL ASSESSMENT EARLIER. RT ADJUSTED VENT SETTINGS AND ADMINISTERED BREATHING TREATMENTS. PT BREATH SOUNDS SLOWLY STARTED TO IMPROVED DID TIDAL VOLUMES. PT BREATH SOUNDS ARE STILL VERY TIGHT BUT W/SOME EXP WHEEZES WHICH COULD NOT BE HEARD WHEN EPISODE INITALLY OCCURED. RT CONTINUES AT BEDSIDE. OXYGEN SAT 98% AT THIS TIME.
--- NOTE | 2022-11-23 22:55 | NUR ---
SPOKE TO DR WATSON AND UPDATED HIM ON PT EVENT, REQUESTED 10MG ALBUTEROL PER RT NIKOLAY RAZO REQUEST. ORDER GIVEN. NO FURTHER ORDERS AT THIS TIME.
--- NOTE | 2022-11-24 06:08 | NUR ---
SHIFT SUMMERY PT HAS RETURNED TO PRIOR BASELINE REGARDING RESPIRATORY STATUS. SHE IS OXYGENATING WELL W/OXYGEN SAT 100% AT THIS TIME, RR WNL. SHE HAD NO FURTHER EPISODES OF RESP DISTRESS OTHER THAN THE ONE EARLIER IN THE SHIFT. SHE CONTINUES TO BE SEDATED W/PROPOFOL AND KETAMINE GTT AND HAS ATIVAN AND FENTANYL PRN. TF INFUSING VIA OG TUBE AT GOAL. HR AND BP ARE WNL AT THIS TIME. PT IS AFEBRILE AND IN NO ACUTE DISTRESS.
[2022-11-24 06:35] LABS: Albumin, Blood 2.4 g/dL (3.4-5.0); Anion Gap 0 mmol/L (6-16); Blood Urea Nitrogen 74 mg/dL (8-24); Bun/Creatinine Ratio 71.2 (12.0-20.0); CO2, Blood 32 mmol/L (21-32); Calcium, Blood 8.7 mg/dL (8.5-10.1); Chloride, Blood 113 mmol/L (98-108); Creatinine, Blood 1.04 mg/dL (0.40-1.00); Glomerular Filtration Rate 60 (60-); Glucose, Blood 141 mg/dL (70-99); Phosphorus, Blood 3.2 mg/dL (2.5-4.9); Potassium, Blood 5.5 mmol/L (3.5-5.5); Sodium, Blood 145 mmol/L (136-145)
--- NOTE | 2022-11-24 12:59 | NUR ---
Received call from [place] reporting spouse is requesting information regarding advanced directives. Pt resting in bed, sedated, and intubated. Pt's spouse and another family member at bedside. Spouse has niece on speaker via cell phone. Confirmed request to discuss advanced directives. Educated on the need for Pt to be awake, A&O to complete AD. Spouse requests AD for himself as well. Offered therapeutic listening and validated concerns. Reviewed plan of care and discussed the importance of planning for the future pending Pt's hospital course. Educated spouse on AD and each sections to complete. Educated on each scenario and meanings of life support and tube feedings. Continued supportive visit and answered questions. Spoke with Pt's Primary RN Marisa and discussed case. Palliative Care will remain available
--- NOTE | 2022-11-24 13:00 | NUR ---
REASSESSMENT PT HAS BEEN INTUBATED AND SEDATED THROUGHOUT THE MORNING. PT HAD VERY LITTLE AIR MOVEMENT BILATERALLY THIS MORNING SO SEDATION VACATION WAS DELAYED. AT NOON, THERE IS MORE AIR MOVEMENT WITH SOME WHEEZING SO SPOKE WITH DR. WATSON AND HE GAVE OK TO TURN DOWN SEDATION. PROPOFOL DECREASED TO 10 MCG/KG/MIN. PT'S SON AND AT THE BEDSIDE. SR, BP STABLE. TOLERATING TUBE FEED. ANGELA WITH CL YELLOW URINE. CONTINUE TO MONITOR.
--- NOTE | 2022-11-24 16:54 | NUR ---
SHIFT SUMMARY PT REMAINS VENTED AND HAS TOLERATED THE SUPERVISOR LENDING ACTIVITIES SEDATION THIS AFTERNOON. SHE IS NOT FOLLOWING COMMANDS BUT WITHDRAWS TO PAINFUL STIMULI. HER LUNG SOUNDS ARE STILL VERY DECREASED WITH FAINT WHEEZING. SR, BP STABLE. GOOD OUTPUT FROM ANGELA, TOLERATING TUBE FEEDS. PASSING GAS WITH TURNS, BUT NO BM YET. PT'S AND SON SPOKE WITH SLITTER CREASER SLOTTER HELPER AND PALLIATVE CARE FOR SUPPORT.
--- NOTE | 2022-11-24 19:00 | NUR ---
ASSUMED CARE ASSUMED CARE OF PATIENT. REMAINS INTUBATED- AC/PC RATE 16, PI 22, PEEP 8, FIO2 45%. SEDATED WITH PROPOFOL AT 10MCG/KG/MIN AND KETAMINE AT 1MG/KG/HR. MONITOR SHOWS NSR, RATE 90s. BP STABLE. OG WITH PIVOT 1.5 AT GOAL RATE OF 35MLS/HR. ANGELA PATENT AND DRAINING TO GRAVITY. RIGHT IJ CENTRAL LINE NOTED. NS INFUSING AT 75MLS/HR PER ORDER. SEE SHIFT ASSESSMENT FOR FULL ASSESSMENT.
[2022-11-25 04:21] LABS: BASOPHILS ABSOLUTE AUTO 0.01 K/mm3 (0.00-0.23); BASOPHILS PERCENT AUTO 0 % (0-2); EOSINOPHILS PERCENT AUTO 0 % (0-6); Hematocrit 26.6 % (33.0-51.0); Hemoglobin 8.4 g/dL (11.5-16.0); IMMATURE GRAN ABSOLUTE AUTO 0.18 K/mm3 (0.00-0.10); IMMATURE GRAN PERCENT AUTO 1 % (0-1); LYMPHOCYTES ABSOLUTE AUTO 0.39 K/mm3 (0.84-5.20); LYMPHOCYTES PERCENT AUTO 3 % (21-46); MONOCYTES ABSOLUTE AUTO 0.96 K/mm3 (0.16-1.47); MONOCYTES PERCENT AUTO 8 % (4-13); Mean Corpuscular HGB 25.8 pg (26.0-34.0); Mean Corpuscular HGB Conc 31.6 g/dL (31.5-36.5); Mean Corpuscular Volume 82 fL (80-100); Mean Platelet Volume 11.6 fL (9.1-12.4); NEUTROPHILS ABSOLUTE AUTO 11.21 K/mm3 (1.96-9.15); NEUTROPHILS PERCENT AUTO 88 % (41-73); NRBC ABSOLUTE 0.02 K/mm3 (0.00-0.02); NRBC Auto 0.2 /100 WBC (0.0-0.2); Platelet Count 142 K/mm3 (150-400); RDW Coefficient Variation 20.4 % (11.7-14.2); RDW Standard Deviation 59.6 fL (35.1-46.3); Red Blood Cell Count 3.26 M/mm3 (3.80-5.20); White Blood Cell Count 12.75 K/mm3 (4.00-11.30)
[2022-11-25 04:34] LABS: Albumin, Blood 2.2 g/dL (3.4-5.0); Anion Gap 2 mmol/L (6-16); Blood Urea Nitrogen 69 mg/dL (8-24); Bun/Creatinine Ratio 63.3 (12.0-20.0); CO2, Blood 30 mmol/L (21-32); Calcium, Blood 8.4 mg/dL (8.5-10.1); Chloride, Blood 113 mmol/L (98-108); Creatinine, Blood 1.09 mg/dL (0.40-1.00); Glomerular Filtration Rate 57 (60-); Glucose, Blood 146 mg/dL (70-99); Phosphorus, Blood 2.7 mg/dL (2.5-4.9); Potassium, Blood 5.4 mmol/L (3.5-5.5); Sodium, Blood 145 mmol/L (136-145)
--- NOTE | 2022-11-25 05:40 | NUR ---
RESPIRATORY DISTRESS AFTER REPOSITIONING, O2 SATS DROPPED TO LOW-60S, TVs DROPPED TO 80-130s, AND RESPIRATORY RATE/WORK OF BREATHING INCREASED. PT MEDICATED WITH FENTANYL 50MCG IV AND PROPOFOL INCREASED TO 30MCG/KG/MIN. LUNGS WITH INSP/EXP WHEEZES T/O. RT CALLED TO BEDSIDE AT THIS TIME.
--- NOTE | 2022-11-25 06:13 | NUR ---
SHIFT SUMMARY VENTILATOR SETTINGS NOW AC/PC RATE 16, PI 20, PEEP 12, FIO2 70% TO MAINTAIN SATS >90. WORK OF BREATHING HAS DECREASED, BUT PT STILL WORKING HARDER THAN AT BEGINNING OF SHIFT. PROPOFOL NOW AT 25MCG/KG/MIN. MEDICATED WITH FENTANYL 50MCG IV X 2 DOSES DURING SHIFT FOR PAIN/SEDATION ADJUNCT. PT INTERMITTENTLY FOLLOWS COMMANDS AND NODS HEAD YES/NO APPROPRIATELY. MONITOR SHOWS NSR-ST, RATE 90s-110s. HYPERTENSIVE AT TIMES- MEDICATED WITH HYDRALAZINE 10MG IV X 1 FOR SBP >180 WITH GOOD RESULTS. OG WITH PIVOT 1.5 AT GOAL RATE OF 35MLS/HR. NO S/S OF GI INTOLERANCE. ANGELA PATENT AND DRAINING TO GRAVITY. NS INFUSING AT 75MLS/HR PER ORDER. WILL REPORT TO ONCOMING RN WHEN AVAILABLE.
--- NOTE | 2022-11-25 08:14 | NUR ---
CARE OF PT ASSUMED AT 0700. PT SEDATED ON KETAMINE AT 1MG/KG/HR AND PROPOFOL AT 35MCG FOR MECH VENT MICHELET. PT GRIMACES AND COUGHS W ORAL CARE, OTHERWISE HEAVILY SEDATED. WILL DECREASE SED TODAY TOLERATED; SED VAC TOLERATED. PT RESP SHALLOW, USES ABD MUSCLES/RETRACTIONS. RESP RATE LOW 20'S. VENT: AC/PC 16/(20/0.90)/70%/PEEP 12. NS AT 75CC/HR. TUBE FEEDS AT GOAL OF 35CC/HR. BOWEL TONES HYPOACTIVE. LUNGS VERY TIGHT/DIM W INSP AND EXP WHEEZES SCATTERED T/O.
--- NOTE | 2022-11-25 09:24 | NUR ---
DR CUMMINGS IN TO SEE PT, FULL UPDATE GIVEN. DR WATSON GIVEN UPDATE WELL. CHEST XRAY ORDERED.
--- NOTE | 2022-11-25 10:45 | NUR ---
CTA ORDERED BY DR WATSON ON HOLD FOR NOW D/T PT'S IODINE ALLERGY; DR WATSON TO SPEAK W REGARDING REACTION. CENTRAL LINE DRSG CHANGED. TUBE FEEDS CHANGED ALONG W TUBING. KEEPING SEDATION AT CURRENT DOSE FOR NOW PER DR WATSON.
--- NOTE | 2022-11-25 11:29 | NUR ---
PT'S AT BEDSIDE AND STATES HE THINKS SHE HAS HAD CONTRAST W/O ISSUE. PT'S REACTION PER DR WATSON WAS RASH THE NEXT DAY. CT TO R/O PE RE-ORDERED, BENADRYL AVAILABLE IF NEEDED. PT IS CURRENTLY RECEIVING STEROIDS.
--- NOTE | 2022-11-25 12:21 | NUR ---
BACK FROM CT; PT TOLERATED PROCEDURE WELL. VSS.
--- NOTE | 2022-11-25 14:36 | NUR ---
Spiritual Care visit Pt. is intubated and unresponsive. Spouse is present and welcomes my visit. Spouse is unsettled about the limited care options. Listen with empathy. Spouse verbalizes about limited resources and the inability of being able to see Pt. if she is in [place]. Nurse arrives with cart to check on Pt. Excused myself and verbalized I would remain available to the Spouse. Spouse verbalized gratitude for the spiritual care visit.
--- NOTE | 2022-11-25 18:23 | NUR ---
Shift summary. Pt remains sedated and intubated. No changes this afternoon. All reassessment data agrees with previous power barker operator. contacted and updated with results of CT PE study. VS stable, see assessement for further details. Will continue to monitor and report off to oncoming RN.
--- NOTE | 2022-11-25 20:00 | NUR ---
ASSUMED CARE PT IS INTUBATED AND SEDATED AC/PC 11/09/60. PROPOFOL GTT @ 35MCG/KG/MIN, KETAMINE GTT @ 1MG/KG/HR. SEDATION VACATION LASTED ABOUT 5 MINUTES BEFORE PT STARTED TO BECOME DESYNCHRONOUS WITH THE VENT. PT ABLE TO FOLLOW COMMANDS AND SQUEEZE FINGERS. WEAKLY NODDED HEAD APPROPRIATELY TO QUESTIONS. SLOW TO RESPOND TO COMMANDS/QUESTIONS. LUNG SOUNDS DIMINISHED, BUT ABLE TO AUSCULTATE AIR MOVING THROUGH (PT HAD ISSUES W/ SILENT CHEST PER PREVIOUS NOTES). RHONCHI HEARD IN RIGHT UPPER LOBE. SPO2 >92%; MAP >65. PT SBP IN THE 130'S. SR.
--- NOTE | 2022-11-25 21:54 | NUR ---
UPDATE HYDRALAZINE GIVEN D/T SBP IN THE 180'S W/ GOOD RESULTS. SBP NOW IN THE 130'S.
--- NOTE | 2022-11-25 21:57 | NUR ---
UPDATE REMOVED 3 RINGS FROM PT D/T EDEMATOUS BUE, PUT IN URINE SAMPLE CUP W/ PT STICKER AND INTO LOCKBOX. WILL INFORM AM NURSE TO GIVE TO IF HE VISITS.
--- NOTE | 2022-11-26 06:13 | NUR ---
SHIFT SUMMARY PT IS INTUBATED AND SEDATED W/ VENT SETTINGS AC/PC 16/12/60%. PROPOFOL GTT @ 25MCG/KG/MIN, KETAMINE 1MG/KG/HR. PT REQUIRES SUCTION W/ EACH REPOSITIONING. MOVING LEGS OCCASIONALLY, BUT TOLERATING VENTILATOR AND DOES NOT SHOW ANY SIGNS OF DISTRESS. HYDRALAZINE GIVEN TWICE THIS SHIFT WITH GOOD RESULTS. NO BM THIS SHIFT, HYPOACTIVE BOWEL TONES. NO OTHER ACUTE EVENTS THIS SHIFT. ANGELA CATHETER PATENT AND DRAINING TO GRAVITY.
--- NOTE | 2022-11-26 09:56 | NUR ---
CARE OF PT ASSUMED AT 0700. PT RESTLESS, PROPOFOL AT 35MCG AND KETAMINE AT 1MG/KG/HR TO HELP W VENT MICHELET. PT ABLE TO LEAD PHP DEVELOPER HANDS TO COMMAND AND NOD HEAD TO SOME QUESTIONS. PT KICKING LEGS, NODS HEAD YES TO PAIN. FENT 50MCG GIVEN W GOOD EFFECT. VENT 16/()/60%/12.
--- NOTE | 2022-11-26 10:22 | NUR ---
3 PIECE WED[place] RING SET GIVEN TO .
--- NOTE | 2022-11-26 14:21 | NUR ---
DR SUBRAMANIAN IN AROUND 1100 TO SEE PT. VENT CHANGES: 16/()50%/PEEP 10. PT AWAKE AND FOLLOWING COMMANDS, VERY RESTLESS. NODS HEAD YES TO PAIN. SVERAL DOSES OF FENT GIVEN FOR DISCOMFORT. PROPOFOL INCREASED TO 40MCG.
--- NOTE | 2022-11-26 14:30 | NUR ---
PROPOFOL DECREASED TO 30MCG. DR SUBRAMANIAN PLACED PT ON PS 810 AT 1430
--- NOTE | 2022-11-26 15:18 | NUR ---
PT AGITATED WITH LOWER TV, RT PLACED PT BACK ON PREVIOUS VENT SETTINGS AT 1430.
[2022-11-26 16:44] LABS: Albumin, Blood 2.4 g/dL (3.4-5.0); Anion Gap Unable to Calculate mmol/L (6-16); Blood Urea Nitrogen 63 mg/dL (8-24); Bun/Creatinine Ratio 67.6 (12.0-20.0); CO2, Blood 31 mmol/L (21-32); Calcium, Blood 8.7 mg/dL (8.5-10.1); Chloride, Blood 116 mmol/L (98-108); Creatinine, Blood 0.93 mg/dL (0.40-1.00); Glomerular Filtration Rate 69 (60-); Glucose, Blood 149 mg/dL (70-99); Phosphorus, Blood 4.4 mg/dL (2.5-4.9); Potassium, Blood 5.4 mmol/L (3.5-5.5); Sodium, Blood 146 mmol/L (136-145)
--- NOTE | 2022-11-26 19:44 | NUR ---
PICC PLACED TO CEDRIC, PT MICHELET PROCEDURE WELL. NS DC'D TODAY BY DR SUBRAMANIAN. PROPOFOL AT 40MCG. PT WAS MUCH MORE AWAKE TODAY AND REQUIRED SEVERAL DOSES OF FENTANYL FOR PAIN. PT TOLERATED SPONT BREATHING TRIAL FOR APPROX 30MIN THIS SHIFT.
--- NOTE | 2022-11-26 20:39 | NUR ---
ASSUMED CARE PT IS INTUBATED AND SEDATED W/ VENT SETTINGS AC/PC 16/10/40%; SPO2 >92%. MAP >65 W/ SBP IN THE 120-130'S; NSR. PROPOFOL GTT @ 40MCG/KG/MIN; KETAMINE 1MG/KG/HR. PT IS RESTLESS, BUT COMPLIANT W/ VENTILATOR. SEDATION VACATION TO BE GIVEN LATER IN SHIFT. FENTANYL USED FOR SEDATION ADJUNCT. ANGELA CATHETER PATENT AND DRAINING TO GRAVITY.
--- NOTE | 2022-11-26 22:14 | NUR ---
UPDATE SEDATION VACATION NOT GIVEN AT THIS TIME D/T PT ALREADY FIGHTING VENTILATOR. PT WOKE UP AND WAS INCREASINGLY AGITATED/RESTLESS. WAS ABLE TO COMMUNICATE WELL THROUGH NODDING/SHAKING HEAD AND FOLLOWED COMMANDS APPROPRIATELY. PT AFFIRMED THAT SHE WAS IN PAIN WHEN ASKED. HYDRALAZINE ALSO GIVEN D/T SBP >170. WILL CONTINUE TO MONITOR.
--- NOTE | 2022-11-26 23:39 | NUR ---
UPDATE PT HAS BEEN REQUIRING Q1H FENTANYL 50MCG FOR PAIN CONTROL. PT CONTINUES TO BECOME AGITATED/RESTLESS ABOUT 30-40 MINUTES AFTER ADMINISTRATION. WHILE RESTLESS/AGITATED, PT IS WIDE AWAKE AND CONFIRMS THAT SHE IS IN PAIN WHEN ASKED. PT ALSO CONFIRMS THAT BREATHING IS WHAT IS CAUSING HER PAIN. DR LUCIO CALLED TO DISCUSS BETTER PAIN MANAGEMENT AND VERSED WAS ORDERED.
--- NOTE | 2022-11-27 00:28 | NUR ---
UPDATE DR CURRY CALLED D/T POOR PAIN MANAGEMENT W/ PT. LEGGER PRESS OPERATOR PUMP W/ ONLY PT CONTROLLED DOSE ORDERED.
[2022-11-27 03:39] LABS: Hematocrit 28.4 % (33.0-51.0); Hemoglobin 8.5 g/dL (11.5-16.0); Mean Corpuscular HGB 25.4 pg (26.0-34.0); Mean Corpuscular HGB Conc 29.9 g/dL (31.5-36.5); Mean Corpuscular Volume 85 fL (80-100); Mean Platelet Volume 11.8 fL (9.1-12.4); Platelet Count 154 K/mm3 (150-400); RDW Coefficient Variation 20.8 % (11.7-14.2); RDW Standard Deviation 63.9 fL (35.1-46.3); Red Blood Cell Count 3.35 M/mm3 (3.80-5.20); White Blood Cell Count 11.65 K/mm3 (4.00-11.30)
--- NOTE | 2022-11-27 04:57 | NUR ---
SHIFT SUMMARY PT IS INTUBATED AND SEDATED W/ SETTINGS AT 16/10/45%; SPO2 >92%. MAP >65 W/ SBP IN 120-130'S. PROPOFOL 20MCG/KG/MIN, KETAMINE 1MG/KG/HR. PAIN CONTROL HAS BEEN DIFFICULT FOR A MAJORITY OF THE NIGHT W/ THE PT BEING ALERT W/ PROPOFOL AT 40MCG/KG/MIN. FENTANYL MELTER CASTER PUMP WITH PT CONTROLLED DOSING INEFFECTIVE D/T PT NOT HAVING THE STRENGTH OR FINE MOTOR SKILLS TO PRESS BUTTON. WAS ABLE TO CONFIRM THAT PT UNDERSTOOD INSTRUCTIONS ON HOW TO USE MELTER CASTER PUMP. DILAUDID WAS THEN ORDERED AND WAS EFFECTIVE; PROPOFOL BEING ABLE TO BE TITRATED DOWN AND PT NO LONGER HAD COMPLAINTS OF PAIN, RESTLESS/AGITATION CEASED, AND PT BECAME MORE COMPLIANT W/ VENTILATOR. PT DID NOT HAVE A BM THIS SHIFT. ANGELA CATHETER PATENT AND DRAINING TO GRAVITY.
[2022-11-27 05:49] LABS: Anion Gap Unable to Calculate mmol/L (6-16); Blood Urea Nitrogen 61 mg/dL (8-24); Bun/Creatinine Ratio 73.9 (12.0-20.0); CO2, Blood 34 mmol/L (21-32); Chloride, Blood 115 mmol/L (98-108); Creatinine, Blood 0.83 mg/dL (0.40-1.00); Glomerular Filtration Rate 79 (60-); Glucose, Blood 150 mg/dL (70-99); Phosphorus, Blood 4.5 mg/dL (2.5-4.9); Potassium, Blood 5.4 mmol/L (3.5-5.5); Sodium, Blood 146 mmol/L (136-145)
--- NOTE | 2022-11-27 07:20 | NUR ---
Assumed care of pt at 0700. Report received from Mckay GALVAN. Pt is receiving ketamine at 1 mg/kg/hr and propofol at 20 mcg/kg/min for ventilator tolerance. RASS -2. In bilat wrist restraints to prevent self-extubation. Answers questions by nodding head yes/no. Follows commands. Vent settings ACPC 16,12/10,45%. SpO2 99%. ETCO2 39. #7.5 ETT is at expected location of 22 cm at lip. TF at goal. Plan to discuss this AM sodium results and prescribed free water flush with ICU provider.
--- NOTE | 2022-11-27 09:30 | NUR ---
Dr Cooper in room to see patient. Provider changed PEEP from 10 to 8 and FiO2 from 45% to 35%.
--- NOTE | 2022-11-27 10:56 | NUR ---
Pt transferred to recliner using ceiling lift per v/o Dr Cooper. Provider in room shortly afterwards to change ventilator to spontaneous mode with PS 10/8 and 35% FiO2. SpO2 95%. ETCO2 40.
--- NOTE | 2022-11-27 12:44 | NUR ---
Pt sitting in chair, eyes closed, intubated, and moderately sedated. Primary RN Jacinta providing personal care. Pt briefly opens her eyes when her name is called but quickly closes them. Spoke with Jacinta and Dr Cooper. Reviewed plan of care. No new concerns at this time. Palliative Care will remain available
--- NOTE | 2022-11-27 14:00 | NUR ---
RESTRAINTS Propofol has been off for several hours. Goal to minimize sedation and allow patient to remain on spontaneous with PS on ventilator for as long as pt tolerates. Pt is having intermittent periods of agitation where she is restless, moving extremities in a way that could put strain on vital lines and cords, and pulling against restraints. For this reason, pt remains in restraints for personal safety and protection of monitors and life supporting equipment.
--- NOTE | 2022-11-27 17:06 | NUR ---
SUMMARY Neuro/Musc/Psych: Receiving ketamine at 1 mg/kg/hr. Propofol off for several hours. Goal is to use ketamine and pain meds to achieve pt comfort and vent tolerance. Currently RASS is -3. Pt resting with constant grimace, but compliant with vent. When patient is awake, she nods "yes" emphatically when asked if she is having pain. Moves all extremities with equal strength and range of motion. Pt seems agreeable with care but overall withdrawn, anxious, depressed when she is alert. Responded well to visit with spouse and additional family members. ADLs: Requires total care for all ADLs including Q2H reposition, Q4H oral care. Pt sat up in chair for 6 hours today, mobilized with lift. Resp: #7.5 cm ETT remains at expected location of 22 cm at lip. Current vent settings are ACPC 16, 12/8, 35%. SpO2 90% or greater. ETCO2 42. Lungs dim t/o. Cardiac: SR per monitor. BP stable. No changes to pulses, cap refill, edema. GI: 2 smear BMs this shift. Plan to continue bowel care tomorrow. Tolerating TF well. Free water flush increased to 250 mL Q4H in response to hypernatremia per v/o Dr Cooper. Abd soft, not tender on palpation. Normal BT. : Good urine output from kelly. Skin: Unchanged from initial assessment. Family: Spouse updated by this RN.
--- NOTE | 2022-11-27 19:39 | NUR ---
ASSUMED CARE PT IS INTUBATED W/ VENT SETTINGS @ 16, 12/8, 35%; SPO2 >90%. MAP >65 W/ SOFT BLOOD PRESSURES/SBP 110'S. PT'S EYE'S OPEN SPONTANEOUSLY, FOLLOWS COMMANDS, AND NODS/SHAKES HEAD APPROPRIATELY. LUNGS ARE TIGHT/CLEAR. BOWEL TONES ARE HYPOACTIVE. KETAMINE GTT @ 1MG/KG/HR; PROPOFOL GTT ON SB. ANGELA CATHETER PATENT AND DRAINING TO GRAVITY.
[2022-11-28 04:09] LABS: Hematocrit 27.6 % (33.0-51.0); Hemoglobin 8.5 g/dL (11.5-16.0); Mean Corpuscular HGB 25.8 pg (26.0-34.0); Mean Corpuscular HGB Conc 30.8 g/dL (31.5-36.5); Mean Corpuscular Volume 84 fL (80-100); Mean Platelet Volume 11.9 fL (9.1-12.4); Platelet Count 160 K/mm3 (150-400); RDW Coefficient Variation 20.4 % (11.7-14.2); RDW Standard Deviation 61.6 fL (35.1-46.3); White Blood Cell Count 15.41 K/mm3 (4.00-11.30)
[2022-11-28 04:28] LABS: Bun/Creatinine Ratio 72.2 (12.0-20.0); Calcium, Blood 8.7 mg/dL (8.5-10.1); Creatinine, Blood 0.87 mg/dL (0.40-1.00); Potassium, Blood 5.8 mmol/L (3.5-5.5)
--- NOTE | 2022-11-28 05:58 | NUR ---
SHIFT SUMMARY PT IS INTUBATED AND SEDATED W/ SETTINGS AT AC/PC 16, 12/8, 35%; SPO2 >92%. MAP >65; SBP 120-140'S. KETAMINE GTT @ 1MG/KG/HR. PT INITIALLY WAS NODDING/SHAKING HEAD APPROPRIETLY TO QUESTIONS AND FOLLOWING COMMANDS, BUT UPON ASSESSMENT THIS AM PT IS NO LONGER NODDING/SHAKING HEAD OR FOLLOWING COMMANDS. PT CONTINUES TO OPEN EYES SPONTANEOUSLY OR WHEN NAME IS CALLED. PERRLA. NO OTHER ACUTE NEURO CHANGES EXCEPT FOR ABSENCE OF NODDING/SHAKING HEAD/FOLLOWING COMMANDS. NO ACUTE EVENTS OCCURED TO PRECIPITATE THIS EXCEPT FOR TITRATION OF KETAMINE DOWN TO 0.5MG/KG/HR. KETAMINE WAS PUT BACK UP TO 1MG/KG/HR WITH NO CHANGES. ABDOMEN IS TENDER. ANGELA CATHETER PATENT AND DRAINING TO GRAVITY.
--- NOTE | 2022-11-28 06:18 | NUR ---
UPDATE PT IS NOW NODDING HER HEAD/FOLLOWING COMMANDS APPROPRIATELY.
--- NOTE | 2022-11-28 07:41 | NUR ---
Assumed care of pt at 0700. Report received from Mckay GALVAN. Propofol is off. Ketamine is at 1 mg/kg/hr, for ventilator tolerance. RASS 0. Pt nods head yes/no to answer questions. Pt nods head no to feeling short of breath or being in pain. Reviewed plan of care for the day with patient and she nods her head yes to indicate understanding. 7.5 cm ETT is at expected location of 23 cm at lip. Vent settings ACPC 16, 12/8, 35%. SpO2 96%. ETCO2 40.
--- NOTE | 2022-11-28 07:54 | NUR ---
Notified Dr Cooper of potassium 5.8. Plan to continue monitoring patient.
--- NOTE | 2022-11-28 10:35 | NUR ---
Pt has been lifted into recliner. Pt became anxious and taking shallow breaths. Dilaudid given. This helped patient calm and take more effective breaths. Dr Mancera in to see patient. Update given to provider. No new orders.
--- NOTE | 2022-11-28 14:41 | NUR ---
At this point in time, no family/friends have called to check on patient. Noted daughter listed on face sheet: Rd Venegasclement . So far this shift, have made three attempts to call this number at [phone], [phone], and [phone]. Does not give option to leave voicemail.
--- NOTE | 2022-11-28 16:58 | NUR ---
Extubated at 1320 to BiPAP 10/5 and 35% FiO2. Pt tolerated extubation well. RR on BiPAP 20-22. Tidal volumes 600+ mL so IPAP titrated down to [address] Cooper. Pt stayed on BiPAP until 1500. She was then switched to NC per instruction of Dr Cooper. Currently requires 6 LPM NC for SpO2 89% or greater - which is prescribed goal.
--- NOTE | 2022-11-28 18:14 | NUR ---
Family came in to see patient and patient immediately became very agitated. She was thrashing, hands were in fists and she was throwing very weak but intentional punches. Pt also making frantic faint grunts which are the only vocalizations she has produced since extubation. Pt not responding to verbal redirection or deescalation. Pt responded well to stimulus reduction. Additionally, pt has had rhythmic mouth movements and contracted limbs since extubation. Dr Cooper in to see patient. Plan to use benzos as directed by provider to treat emergence reaction. Pt's spouse, Matt, responded to pt's agitation by repeatedly stating "what?" or "okay" or "calm down", which further escalated patient's agitation. This RN and seismic prospecting observer helper interrupted interaction to transfer pt from recliner back to bed. Educated pt and pt's son that reduction of stimulation would be most beneficial for patient's recovery. They verbalized understanding and politely departed for the evening after Dr Cooper updated them on plan of care.
--- NOTE | 2022-11-28 19:19 | NUR ---
SUMMARY Neuro/Musc/Psych: Ketamine off since time of extubation. Pt opens eyes spontaneously. Only provides sounds, no words, post extubation. Does not follow commands but withdraws from painful stimulus. PERRL. No dilaudid given after extubation due to fragile respiratory status. Additionally, pt has had 3 mg versed this evening due to suspected emergence reaction r/t ketamine. Pt becomes highly agitated with stimulation and does not respond to gentle verbal redirection or reorientation. Pt moves all extremities with equal strength and range of motion. Since extubation, strength has improved but pt also is very tense in all extremities. Resp: SpO2 90% or greater with 6 LPM NC. Plan for BiPAP while pt is asleep - reported to oncoming shift. Lungs dim t/o. Weak, nonproductive cough post-extubation. Cardiac: SR per monitor. BP stable. No changes to initial assessment. GI: NPO. One brown BM, mixed consistency of liquid and pellets. Abd soft, not distended, not tender on palpation. : Good urine output from kelly catheter. Skin: Unchanged from initial assessment Family: Spouse (Matt) and son (Bill) updated on plan of care this evening by this RN and Dr Cooper.
--- NOTE | 2022-11-28 22:30 | NUR ---
ASSUMED CARE AT 1900 PT LAYING IN BED RESTING AT SHIFT CHANGE. SHE IS ORIENTED TO SELF AND LOCATION BUT IS RESTLESS AND FIDGETY; SHE IS CONTINIOUSLY SAYING "NO" OR "NO DADDY"; ANSWERING ALL QUESTIONS WITH "NO" INAPPROPRIATLY; SQUEEZES EYES SHUT DURING ASSESSMENT AND PULLS AWAY DURING PERSONAL CARE; REFUSED TO ALLOW ORAL CARE TO BE DONE; SHE IS MOVING ALL EXTREMITIES BUT NOT FOLLOWING DIRECTIONS; PRN VERSED AVAILABLE AND GIVEN. PT REFUSING TO BE ON BIPAP AT THIS TIME; SAKES HEAD NO QUICKLY AND YELLS NO; SPO2 >90% ON 6L NC. AFEBRILE. HR 80-90'S. SBP CLIMBING REACHING 180'S; PRN DILAUDID GIVEN TO HELP WITH RESTLESSNESS; 30 MIN LATER PRN HYDALAZINE GIVEN AND HELPFUL; SBP NOW 120'S. UNABLE TO GIVE PO MEDS; SHE IS CLAMPED DOWN WHEN ATTEMPTING ORAL CARE AND OFFERING TO TRIAL SIPS OF WATER. ANGELA IN PLACE AND DRAINING TO GRAVITY. PICC TO CEDRIC MENDES WITH DRESSING C/D/I. SEE SHIFT ASSESSMENT FOR FULL ASSESSMENT.
[2022-11-29 05:33] LABS: Hemoglobin 8.5 g/dL (11.5-16.0); Mean Corpuscular HGB 25.8 pg (26.0-34.0); Mean Corpuscular HGB Conc 31.5 g/dL (31.5-36.5); Mean Corpuscular Volume 82 fL (80-100); Mean Platelet Volume 11.8 fL (9.1-12.4); Platelet Count 164 K/mm3 (150-400); RDW Coefficient Variation 19.5 % (11.7-14.2); Red Blood Cell Count 3.29 M/mm3 (3.80-5.20); White Blood Cell Count 11.78 K/mm3 (4.00-11.30)
[2022-11-29 05:51] LABS: Bun/Creatinine Ratio 66.1 (12.0-20.0); Calcium, Blood 9.2 mg/dL (8.5-10.1); Creatinine, Blood 0.74 mg/dL (0.40-1.00); Potassium, Blood 5.4 mmol/L (3.5-5.5)
--- NOTE | 2022-11-29 07:16 | NUR ---
END OF SHIFT SUMMARY NO ACUTE EVENTS OVERNIGHT. PT PLACED ON BIPAP AT MIDNIGHT AND TOLERATING WELL; BIPAP SETTINGS TITRATED UP TO 10/5, FIO2 40% TO KEEP SPO2 >89%. NEURO IMPROVING T/O SHIFT; SHE IS NO LONGER SAYING "NO" WHEN ASKED QUESTIONS AND APPEARS LESS FIDGETY; SHE IS ANSWERING Y/N QUESTIONS APPROPRIATLY WITH HEAD NODS; PRN VERSED GIVEN X3 AND DILAUDID X1. HR 70-90'S. BP STABLE. UNABLE TO GIVE PO MEDS. ANGELA IN PLACE AND DRAINING TO GRAVITY. LR INFUSING AT 150ML/HR. REPORT GIVEN TO MISA GALVAN.
--- NOTE | 2022-11-29 07:19 | NUR ---
ASSUMED CARE: PT RESTING QUIETLY IN BED, ON BIPAP AT 10/5, 50% FIO2. NSR IN 60S ON TELE. OPENED EYES TO STAFF DURING BEDSIDE REPORT BUT DID NOT RESPOND OTHERWISE. NO ACUTE NEEDS OR CONCERNS AT THIS TIME.
--- NOTE | 2022-11-29 08:42 | NUR ---
ATTEMPTED TO REMOVE BIPAP MASK FOR ORAL CARE AND PT CLENCHED JAW AND MADE A GRIMACE. WOULD NOT OPEN MOUTH FOR ORAL CARE OR TO ANSWER ORIENTATION QUESTIONS, JUST MADE SOUNDS.
--- NOTE | 2022-11-29 10:25 | NUR ---
DR SUBRAMANIAN SAW PT AND INSTRUCTED TO PUT HER ON NC. NC AT 4L WITH SATURATIONS IN MID 90S. BED BATH COMPLETED, PT AWAKE AND CLEARLY SAID THE WORD NO WITH CLEANING AND ASSISTING TO MOVE EXTREMITIES. EXTREMITIES STIFF AND PT RESISTANT TO CARE AND SWATTED AT STAFF DURING MENDEZ CARE. PT AWAKE WITH EYES OPEN. PT'S AT BEDSIDE AT THIS TIME.
--- NOTE | 2022-11-29 10:43 | NUR ---
DISCUSSED PT WITH HER AND HE SAID SHE IS MORE AWAKE TODAY, LOOKING AT HIM, NODDING APPROPRIATELY, SAYING NO AND MOVING ARMS TO PUSH HIM AWAY. ASKED DR SUBRAMANIAN IF HE WANTED TO START A HEPARIN GTT BLOOD THINNER AND STATED NO SINCE BRILINTA IS AN ANTIPLATELET. DISCUSSED DOBHOFF AND THE FACT THAT SHE WOULD NEED RESTRAINED AND SEDATED TO KEEP IN PLACE AND DR SUBRAMANIAN WAS IN AGREEMENT THAT THIS WOULD BE COUNTERPRODUCTIVE FOR PT DUE TO THE FACT WE ARE WANTING HER TO CLEAR FROM KETAMINE GTT. STATES HE WILL GIVE HER ANOTHER DAY WITHOUT BRILINTA AND POSSIBLE ORDER SPEECH EVALUATION TOMORROW. SCHOOL CAFET[employer]IA COOK HEAD AWARE OF PLAN
--- NOTE | 2022-11-29 12:37 | NUR ---
PT LESS RIGID WITH MENDEZ CARE AFTER BM. ATTEMPTED TO ASSIST WITH REPOSITIONING. CONTINUES TO REPEAT "NO" TO STAFF AND NODS YES AT TIMES. CALL LIGHT IN REACH. DENIES NEEDS OR CONCERNS AT THIS TIME.
[2022-11-29 16:32] LABS: Percent Saturation 33.7 % (15.0-50.0)
--- NOTE | 2022-11-29 18:19 | NUR ---
SHIFT SUMMARY: PT REMAINS ON 2-4L ON NC. PT'S STATES SHE IS IMPROVING HER MENTAL STATUS. PT IS TALKING TO HIM MORE, ASKING FOR WATER. OFFERED ORAL CARE AND PT REFUSED. ASKED PT IF MOUTH WASH COULD BE SCRUBBED ON TONGUE SO PT STUCK HER TONGUE OUT. REPOSITION Q2. STILL RIGID BUT ABLE TO MOVE EXTREMETIES EASIER. NRS ON TELE.
--- NOTE | 2022-11-29 23:00 | NUR ---
ASSUMED CARE AT 1900 PT IS MORE ALERT AND COOPERATIVE WITH CARE TODAY; SHE IS ABLE TO STATE , NAME, PLACE, BUT NOT TOWN OR DATE; ANSWERING CARE QUESTIONS APPROPRIATLY; GENERALIZED WEAKNESS NOTED; SHE WAS ABLE TO QUICKLY CLEAN MOUTH WITH TOOTHBRUSH INDEPENDENTLY. ON4L NC WITH SPO2 90%; NO C/O SOB; PLAN TO PLACE ON BIPAP WHILE SLEEPING. AFEBRILE. HR 70'S. BP STABLE, SBP 130'S. ATTEMPTED BED SIDE SWALLOW EVAL SINCE PT PARTICIPATED WITH ORAL CARE; COUGHING NOTED AFTER ONE SPOONFUL OF WATER; STOPPED TRIAL AFTER THAT; MOUTH MOISURIZER AND LIP BALM USED FOR DRY MOUTH. ANGELA IN PLACE AND DRAINING TO GRAVITY. SEE SHIFT ASSESSMENT FOR FULL ASSESSMENT.
[2022-11-30 04:01] LABS: Hematocrit 27.7 % (33.0-51.0); Hemoglobin 8.8 g/dL (11.5-16.0); Mean Corpuscular HGB Conc 31.8 g/dL (31.5-36.5); Mean Corpuscular Volume 82 fL (80-100); Mean Platelet Volume 10.7 fL (9.1-12.4); Platelet Count 179 K/mm3 (150-400); RDW Coefficient Variation 18.6 % (11.7-14.2); RDW Standard Deviation 55.4 fL (35.1-46.3); Red Blood Cell Count 3.39 M/mm3 (3.80-5.20)
[2022-11-30 04:17] LABS: Bun/Creatinine Ratio 57.6 (12.0-20.0); Calcium, Blood 9.1 mg/dL (8.5-10.1); Creatinine, Blood 0.73 mg/dL (0.40-1.00); Potassium, Blood 5.2 mmol/L (3.5-5.5)
--- NOTE | 2022-11-30 06:20 | NUR ---
END OF SHIFT SUMMARY NO ACUTE EVENTS OVER NIGHT. PT NEURO STATUS IMPROVING, COMMUNICATING IN MORE FULL SENTENCES NOW. AFEBRILE. WAS PLACED ON BIPAP SINCE 29 WITH SETTINGS 10/5, FIO2 50%; TOLERATING BIPAP WELL. HR 60-90'S. SBP 130-150'S; HYDROLAZINE GIVEN ONCE FOR SBP >170'S. ONCE BM THIS SHIFT. ANGELA IN PLACE AND DRAINING TO GRAVITY. WILL REPORT TO AM RN WHEN AVAILABLE.
--- NOTE | 2022-11-30 07:14 | NUR ---
ASSUMED CARE: PT RESTING IN BED ON BIPAP AT THIS TIME, SETTINGS 10/5 AND 50%. NSR ON TELE IN 60S AT THIS TIME. NO ACUTE NEEDS OR CONCERNS. WILL DISCUSS POSSIBILITY OF SPEECH EVALUATION WITH DOCTOR TODAY.
--- NOTE | 2022-11-30 08:18 | NUR ---
PT WAS REMOVED FROM BIPAP AND PUT ON 4L NC. SAT PT UP AND SHE WAS AWAKE AND ALERT, LOOKING AT STAFF, TRACKING IN ROOM. ASKED PT HOW SHE WAS AND SHE SAID "GOOD." ASKED PT WHERE SHE WAS AND SHE SAID "HOSPITAL." PT FOLLOWED COMMANDS AND MOVED ALL EXTREMITIES. BEDSIDE SWALLOW EVAL COMPLETED WITH 30 CC OF WATER WITH NO ACUTE COUGHING BUT VOICE WAS WEAK. REPORTED THIS TO DR PINZON WHO AGREED TO SPEECH EVALUATION. ASH COLLECTOR AWARE OF PT'S PROGRESS.
--- NOTE | 2022-11-30 13:00 | NUR ---
SPEECH THERAPY CAME TO EVALUATE PT AND WAS ABLE TO GIVE PT AM MEDS. PT WAS VERY PARTICULAR ABOUT THE FOODS SHE WOULD TRY FOR EVALUATION. SPEECH CLEARED HER FOR MECHANICAL SOFT AND NECTAR THICK LIQUIDS. PT CALLED FOR ASSISTANCE WITH [facility] AND REQUIRED 3 ASSIST TO GET THERE AND LIFT TO GET BACK TO RECLINER. WILL DISCUSS FURTHER WITH DR PINZON FOR PT/OT ORDERS.
--- NOTE | 2022-11-30 18:10 | NUR ---
SHIFT SUMMARY: PT HAS BEEN CHANGED TO MEDICAL STATUS. WORKED WITH PHYSICAL THERAPY AND SPEECH THERAPY THIS SHIFT. VERY WEAK, REQUIRES HEAVY ASSISTANCE OR LIFT FROM BED TO CHAIR. FAMILY AT BEDSIDE FOR PART OF SHIFT TODAY. NO FURTHER NEEDS OR CONCERNS AT THIS TIME.
--- NOTE | 2022-11-30 22:41 | NUR ---
ASSUMED CARE ASSUMED CARE AT 1900. PT ALERT AND ABLE TO STATE HER NAME AND . STATES SHE IN HOSPITAL BUT DOES NOT KNOW YEAR OR STATE. FOLLOWS DIRECTIONS. VOICE SOFT AND HOARSE, ABLE TO SAY 1-2 WORDS AT A TIME. DENIES CHEST PAIN OR SOB. ON 5L NC W/ SPO2 100%. TITRATED TO 3L NC W/ SPO2 AT 98%. PLACED PT ON CONTINUOUS SPO2 MONITORING. VSS. MEDICATIONS GIVEN CRUSHED W/ VANILLA PUDDING. NECTAR THICK LIQUIDS OFFERED. NS AT 75ML/HR. BED ALARM IN PLACE AND CALL LIGHT IN REACH.
[2022-12-01 04:12] LABS: BASOPHILS PERCENT AUTO 0 % (0-2); EOSINOPHILS PERCENT AUTO 0 % (0-6); Hematocrit 27.4 % (33.0-51.0); Hemoglobin 8.7 g/dL (11.5-16.0); IMMATURE GRAN ABSOLUTE AUTO 0.04 K/mm3 (0.00-0.10); IMMATURE GRAN PERCENT AUTO 0 % (0-1); LYMPHOCYTES ABSOLUTE AUTO 0.45 K/mm3 (0.84-5.20); LYMPHOCYTES PERCENT AUTO 5 % (21-46); MONOCYTES ABSOLUTE AUTO 0.44 K/mm3 (0.16-1.47); MONOCYTES PERCENT AUTO 5 % (4-13); Mean Corpuscular HGB 25.7 pg (26.0-34.0); Mean Corpuscular HGB Conc 31.8 g/dL (31.5-36.5); Mean Corpuscular Volume 81 fL (80-100); Mean Platelet Volume 10.4 fL (9.1-12.4); NEUTROPHILS ABSOLUTE AUTO 8.49 K/mm3 (1.96-9.15); NEUTROPHILS PERCENT AUTO 90 % (41-73); Platelet Count 178 K/mm3 (150-400); RDW Coefficient Variation 18.4 % (11.7-14.2); RDW Standard Deviation 53.3 fL (35.1-46.3); Red Blood Cell Count 3.38 M/mm3 (3.80-5.20); White Blood Cell Count 9.42 K/mm3 (4.00-11.30)
--- NOTE | 2022-12-01 06:26 | NUR ---
SHIFT SUMMARY NO ACUTE EVENTS T/O NIGHT. PT PLACED ON BIPAP AT TIMES D/T SPO2 DOWN TO 87%. PT ON 3L WHEN AWAKE. VSS. PT CONT AND INCONT OF URINE. PUREWICK IN PLACE. PT HAD ONE BM THIS SHIFT. WILL REPORT OFF TO ONCOMING NURSE.
[2022-12-01 07:02] LABS: Albumin, Blood 2.2 g/dL (3.4-5.0); Albumin/Globulin Ratio 0.7 (0.8-1.8); Bilirubin, Total 0.4 mg/dL (0.1-1.0); Bun/Creatinine Ratio 45.2 (12.0-20.0); Calcium, Blood 9.1 mg/dL (8.5-10.1); Creatinine, Blood 0.75 mg/dL (0.40-1.00); Globulin, Blood 3.2 g/dL (2.2-4.0); Potassium, Blood 4.7 mmol/L (3.5-5.5); Total Protein, Blood 5.4 g/dL (6.4-8.2)
--- NOTE | 2022-12-01 09:55 | NUR ---
CARE OF PT ASSUMED AT 0700. PT AWAKE. ABLE TO NOD HEAD APPROPRIATELY TO QUESTIONS, ABLE TO USE CALL LIGHT. VOICE WEAK, WHISPERED. PT TRANSFERED TO CHAIR VIA LIFT PT IS VERY WEAK. PT COUGHED ON A BITE OF FOOD; SPEECH NOTIFIED. OT/PT TO WORK W PT TODAY.
--- NOTE | 2022-12-01 18:36 | NUR ---
PT TRANSFERED FROM ICU TO MEDICAL FLOOR AT 181. RECIEVED REPORT FROM TAJ. PT ORRIENTED TO ROOM. NORMAL SALINE RUNNING AT 75ML/HR. PT ON 4L HUMIDIFIED OXYGEN. BED IN LOWEST POSITION AND CALL LIGHT IN REACH.
[2022-12-02 04:58] LABS: Base Excess Venous 9.4 mmol/L; Bicarbonate Venous 32.1 mmol/L (24.0-30.0)
--- NOTE | 2022-12-02 06:09 | NUR ---
ELECTRIC ARC WELDER SUMMARY PT A/OX TO SELF AND PLACE. PT WAKEFUL T/O THE NIGHT UNTIL APROX 0200; PT USING CALL LIGHT 10 TIMES AN HOUR; PT CONFUSED; ASKING TO GET OUT OF BED AND GO FOR A WALK; PT STATING SHE WANTS TO GO HOME; ASKING FOR HER . ATTEMPTS TO REORIENT PT SOMETIMES DIFFICULT. ATTENDING TO PT NEEDS TO ASSESS COMFORT WHEN RESPONDING TO CALL LIGHT. PT HAS PUREWICK IN PLACE AND EFFECTIVE. RT REQ [facility]; CALL TO OIL RIG ROUGHNECK F/ORDER. REVIEWED RESULTS W/RT; NO CHANGES OR INTERVENTIONS AT THIS TIME. NOTE PT VOICE IS SOFT AND COUGH IS WEAK. PT ON 4L HUMIDIFIED O2. PT C/O OF HEARTBURN; CALL TO OIL RIG ROUGHNECK OSMAN ORDER FOR 500 MG TUMS Q6. MEDS GIVEN CRUSHED IN PUDDING. PT NOT ORIENTED TO HER LIMITATIONS. CALL LIGHT IN REACH. BED LOCKED/LOW.
[2022-12-02] MEDS ORDERED: NORVASC10 MG PO (11:43)
[2022-12-02] MEDS ORDERED: BUDE.25 INH (11:46)
[2022-12-02] MEDS ORDERED: IPRAT-ALBUT 0.5-3 ML INH (11:47)
[2022-12-02] MEDS ORDERED: PRED20 PO (11:48)
--- NOTE | 2022-12-02 16:52 | NUR ---
SHIFT SUMMARY- PT IS ALERT AND ORIENTED X2. GENERALIZED WEAKNESS.PT IS REQUIRING 2 PERSON ASSIST TO STAND. DYSPHAGIA, SOFT SPOKEN. PLAN IS [place] TO HOME. AFTER TALKING WITH PT, SHE THINKS SHE MAY BENEFIT FROM REHAB BEFORE HOME. WILL TALK WITH [employer] ARCHITECT. PT NEW PLAN IS TO DISCHARGE TO [facility] TOMORROW. PT IS EXPIRENCING ANXIETY DUE TO THE CHANGE IN PLANS. TREATED PER EMAR. BED IS IN THE LOWEST POSITION WITH THE CALL LIGHT IN REACH.
--- NOTE | 2022-12-03 07:27 | NUR ---
BODY BUILDER APPRENTICE SUMMARY: A&Ox4. PLEASANT AND COOPERATIVE WITH CARE. CALLS APPROPRIATELY AND IS ABLE TO COMMUNICATE NEEDS EFFECTIVELY. ORIENTED TO OWN ABILITIES AND EXHIBITS GOOD JUDGMENT. SEVERAL EPISODES OF ANXIETY T/O THE NIGHT, CALLING FREQUENTLY TO APOLOGIZE FOR CALLING. DID BETTER WHEN STAFF IN ROOM. HAD A PILL "STUCK IN HER THROAT" WHICH AIDED IN HER ANXIETY. CALL TO DR BORJA FOR PRN ATIVAN 0.5MG q6h. REPORT TO ONCOMING RN.
[2022-12-03 10:12] LABS: SARS-Cov-2 (COVID-19) Antigen Negative (NEGATIVE)
[2022-12-03] MEDS ORDERED: ASPI81CH PO (10:28)
--- NOTE | 2022-12-03 12:11 | NUR ---
DISCHARGE- PT DISCHARGED TO SNF FACILITY. TAKEN BY TRANSPORT. PT ALERT AND ORIENTED X4. ABLE TO EXPRESS NEEDS. REPORT GIVEN TO SNF NURSE, COLE HERNANDES.
== END 2022-12-03 11:25 | DRG 207 ==
LOC: ER 01:38 → PCU 04:41 → ICUW 04:41 → MEDS 04:41 → PCU 05:22 → ICUW 11-18 03:41 → MEDS 12-01 18:12 → ENPENDDIS 12-02 17:28 → MEDS 12-03 11:25
PROVIDERS: Emergency Medicine; Internal Medicine; Internal Medicine Critical Care Medicine; ADMIT Student in an Organized Health Care Education/Training Program
PROC: 5A09357 Assistance with Respiratory Ventilation, Less than 24 Consecutive Hours, Continuous Positive Airway Pressure (ICD-10-PCS; 2022-11-17)
PROC: 4A033R1 Measurement of Arterial Saturation, Peripheral, Percutaneous Approach (ICD-10-PCS; 2022-11-18)
PROC: 0BH18EZ Insertion of Endotracheal Airway into Trachea, Via Natural or Artificial Opening Endoscopic (ICD-10-PCS; principal; 2022-11-19)
PROC: 02HV33Z Insertion of Infusion Device into Superior Vena Cava, Percutaneous Approach (ICD-10-PCS; 2022-11-19)
PROC: 3E033XZ Introduction of Vasopressor into Peripheral Vein, Percutaneous Approach (ICD-10-PCS; 2022-11-19)
PROC: 5A1955Z Respiratory Ventilation, Greater than 96 Consecutive Hours (ICD-10-PCS; 2022-11-19)
PROC: 0T9B70Z Drainage of Bladder with Drainage Device, Via Natural or Artificial Opening (ICD-10-PCS; 2022-11-19)
PROC: 0DH67UZ Insertion of Feeding Device into Stomach, Via Natural or Artificial Opening (ICD-10-PCS; 2022-11-24)
DX: J96.21 Acute and chronic respiratory failure with hypoxia (principal); J44.1 Chronic obstructive pulmonary disease with (acute) exacerbation; I24.8 Other forms of acute ischemic heart disease; N17.9 Acute kidney failure, unspecified; N39.0 Urinary tract infection, site not specified; R57.9 Shock, unspecified; E87.0 Hyperosmolality and hypernatremia; Z20.822 Contact with and (suspected) exposure to COVID-19; I25.10 Atherosclerotic heart disease of native coronary artery without angina pectoris; J96.22 Acute and chronic respiratory failure with hypercapnia; I10 Essential (primary) hypertension; E78.5 Hyperlipidemia, unspecified; F17.210 Nicotine dependence, cigarettes, uncomplicated; D50.9 Iron deficiency anemia, unspecified; E83.39 Other disorders of phosphorus metabolism; I48.0 Paroxysmal atrial fibrillation; E87.5 Hyperkalemia; K21.9 Gastro-esophageal reflux disease without esophagitis; F41.1 Generalized anxiety disorder; D69.6 Thrombocytopenia, unspecified; K59.00 Constipation, unspecified; I25.2 Old myocardial infarction; Z71.6 Tobacco abuse counseling; Z90.710 Acquired absence of both cervix and uterus; Z95.5 Presence of coronary angioplasty implant and graft; Z91.041 Radiographic dye allergy status; Z79.2 Long term (current) use of antibiotics; Z79.52 Long term (current) use of systemic steroids; Z79.82 Long term (current) use of aspirin; Z79.899 Other long term (current) drug therapy
CPT/HCPCS: 31500; 31720; 36415; 36556; 36569; 36600; 51702; 71045; 71260; 80048; 80053; 80061; 80069; 81001; 82728; 82803; 82947; 83540; 83550; 83735; 83880; 84100; 84484; 85025; 85027; 87070; 87205; 87426; 92526; 92610; 93005; 93010; 93306; 94002; 94003; 94640; 94644; 94645; 94660; 94664; 94760; 94761; 94762; 96365; 96375; 97110; 97162; 97164; 97166; 97530; 97535; 99285-25; A9270; C1751; C9113; C9803; J0282; J0360; J0456; J0696; J1170; J1650; J2060; J2250; J2405; J2704; J2920; J2930; J3010; J3475; J7030; J7050; J7060; J7120; J7512; J7799; Q9967

== ENCOUNTER 2022-12-09 16:50 | Emergency (ER) | payer OTHER ==
[~2022-12-09] VITALS: Ht 154.9 cm; Wt 68.0 kg
[~2022-12-09 16:50] MED LIST changes: +BRILINTA90 M7 PO; +BUDE.25 INH; +IPRAT-ALBUT 0.5-3 ML INH; +LISI20 PO; +LISI5 PO; +NORVASC10 MG PO; +ZOLPIDEM TARTRA10 MG PO
== END 2022-12-09 20:30 | disposition home or self-care (01) ==
LOC: ER 16:50
DX: K56.41 Fecal impaction (principal); J44.9 Chronic obstructive pulmonary disease, unspecified; I10 Essential (primary) hypertension; I25.10 Atherosclerotic heart disease of native coronary artery without angina pectoris; I25.2 Old myocardial infarction; F17.210 Nicotine dependence, cigarettes, uncomplicated
CPT/HCPCS: 74018

== ENCOUNTER 2023-05-10 15:53 | Inpatient (IN) | payer OTHER ==
[2023-05-10] VITALS (9 sets, daily range): BP systolic 79–132; BP diastolic 62–106
[~2023-05-10] VITALS: Ht 154.9 cm; Wt 71.2 kg
[~2023-05-10 15:53] MED LIST changes: +FAMO20; +FOLI1; +ISOSORBIDE MONO30 MG; +NITR.4SL SL; +VITAMIN D325 MC3; +Ventolin/Prove6.7 GM
[2023-05-10] MEDS ORDERED: ALBU8HFA2 INH (16:43)
[2023-05-10] MEDS ORDERED: AMBIEN10 MG PO (16:43)
[2023-05-10] MEDS ORDERED: BUDE.25 INH (16:43)
[2023-05-10] MEDS ORDERED: ERGO400 PO (16:43)
[2023-05-10] MEDS ORDERED: NITR.4SL SL (16:44)
[2023-05-10] MEDS ORDERED: FERROUS SULFAT325 M3 PO (16:44)
[2023-05-10] MEDS ORDERED: METO25ER PO (16:44)
[2023-05-10] MEDS ORDERED: Crestor20 MG PO (16:45)
[2023-05-10 16:50] LABS: Albumin, Blood 2.8 g/dL (3.4-5.0); Albumin/Globulin Ratio 0.8 (0.8-1.8); Bun/Creatinine Ratio 19.3 (12.0-20.0); Calcium, Blood 8.8 mg/dL (8.5-10.1); Creatinine, Blood 1.5 mg/dL (0.40-1.00); Globulin, Blood 3.7 g/dL (2.2-4.0); Potassium, Blood 4.1 mmol/L (3.5-5.5); Total Protein, Blood 6.5 g/dL (6.4-8.2)
[2023-05-10 17:12] LABS: BASOPHILS ABSOLUTE AUTO 0.03 K/mm3 (0.00-0.23); BASOPHILS PERCENT AUTO 0 % (0-2); EOSINOPHILS ABSOLUTE AUTO 0.04 K/mm3 (0.00-0.68); EOSINOPHILS PERCENT AUTO 0 % (0-6); Hematocrit 28.3 % (33.0-51.0); Hemoglobin 8.9 g/dL (11.5-16.0); IMMATURE GRAN ABSOLUTE AUTO 0.05 K/mm3 (0.00-0.10); IMMATURE GRAN PERCENT AUTO 0 % (0-1); LYMPHOCYTES ABSOLUTE AUTO 1.86 K/mm3 (0.84-5.20); LYMPHOCYTES PERCENT AUTO 14 % (21-46); MONOCYTES ABSOLUTE AUTO 1.29 K/mm3 (0.16-1.47); MONOCYTES PERCENT AUTO 10 % (4-13); Mean Corpuscular HGB 26.1 pg (26.0-34.0); Mean Corpuscular HGB Conc 31.4 g/dL (31.5-36.5); Mean Corpuscular Volume 83 fL (80-100); Mean Platelet Volume 10.6 fL (9.1-12.4); NEUTROPHILS ABSOLUTE AUTO 9.62 K/mm3 (1.96-9.15); NEUTROPHILS PERCENT AUTO 75 % (41-73); NRBC ABSOLUTE 0.06 K/mm3 (0.00-0.02); NRBC Auto 0.5 /100 WBC (0.0-0.2); Platelet Count 225 K/mm3 (150-400); RDW Coefficient Variation 17.4 % (11.7-14.2); RDW Standard Deviation 47.1 fL (35.1-46.3); Red Blood Cell Count 3.41 M/mm3 (3.80-5.20); White Blood Cell Count 12.89 K/mm3 (4.00-11.30)
[2023-05-10 21:29] LABS: Anti-Xa UFH, PHA Monitoring <0.10 IU/mL; International Normalized Ratio 1.05
--- NOTE | 2023-05-10 23:50 | NUR ---
AT 2150 PATIENT ARRIVED TO ICU 3 VIA GURNEY FROM ED. PATIENT AWAKE DENIES CHEST PAIN. TRANSFER TO ICU BED USING SLIDER SHEET AND PLACED ON ICU MONITORS. PATIENT UNSURE OF CURRENT MEDICATIONS. ADMIT HISTORY OBTAINED FROM DISCHARGE PAPERS FROM [facility]. PATIENTS GIVEN UPDATE ON ADMIT HE IS PLANING ON BRINGING IN HER CURRENT MEDICATIONS IN THE MORNING. GENERALIZED BRUISING, RADIAL ACCESS FOR PCI 4 DAYS AGO WITH BRUISING, NO SWELLING SEEN. IV TO RIGHT UPPER ARM EXTREMELY PAINFUL AND DC'D. PATIENT HAVING FEELINGS OF PANIC AND FEELING IF SHE NEEDS BREATHING TX. DOCTOR LUCIO NOTIFIED AND ORDER OBTAINED FOR UDN TX AND ATIVAN PO, PLAN TO START WITH LOW DOSE. ABLE TO START 20G IV TO LEFT WRIST.
[2023-05-11] VITALS (50 sets, daily range): BP systolic 66–131; BP diastolic 50–92
[2023-05-11] MEDS ORDERED: EFFIENT10 MG PO (02:13)
[2023-05-11] MEDS ORDERED: ESCI10 PO (02:14)
[2023-05-11] MEDS ORDERED: HYDHCL25 PO (02:15)
[2023-05-11] MEDS ORDERED: METO50ER PO (02:16)
[2023-05-11] MEDS ORDERED: K-TAB ER20 ME1 PO (02:18)
[2023-05-11] MEDS ORDERED: TORS10 PO (02:21)
[2023-05-11] MEDS ORDERED: ZOLP5 PO (02:22)
[2023-05-11] MEDS ORDERED: IPRAT-ALBUT 0.5-3 ML INH (02:23)
[2023-05-11] MEDS ORDERED: Aspir 8181 MG PO (02:25)
[2023-05-11 05:12] LABS: BASOPHILS ABSOLUTE AUTO 0.05 K/mm3 (0.00-0.23); BASOPHILS PERCENT AUTO 1 % (0-2); EOSINOPHILS ABSOLUTE AUTO 0.07 K/mm3 (0.00-0.68); EOSINOPHILS PERCENT AUTO 1 % (0-6); Hematocrit 27.4 % (33.0-51.0); Hemoglobin 8.6 g/dL (11.5-16.0); IMMATURE GRAN ABSOLUTE AUTO 0.06 K/mm3 (0.00-0.10); IMMATURE GRAN PERCENT AUTO 1 % (0-1); LYMPHOCYTES PERCENT AUTO 18 % (21-46); MONOCYTES ABSOLUTE AUTO 0.83 K/mm3 (0.16-1.47); MONOCYTES PERCENT AUTO 8 % (4-13); Mean Corpuscular HGB 26.2 pg (26.0-34.0); Mean Corpuscular HGB Conc 31.4 g/dL (31.5-36.5); Mean Corpuscular Volume 84 fL (80-100); Mean Platelet Volume 10.9 fL (9.1-12.4); NEUTROPHILS ABSOLUTE AUTO 8.07 K/mm3 (1.96-9.15); NEUTROPHILS PERCENT AUTO 73 % (41-73); NRBC ABSOLUTE 0.05 K/mm3 (0.00-0.02); NRBC Auto 0.5 /100 WBC (0.0-0.2); Platelet Count 205 K/mm3 (150-400); RDW Standard Deviation 46.5 fL (35.1-46.3); Red Blood Cell Count 3.28 M/mm3 (3.80-5.20); White Blood Cell Count 11.08 K/mm3 (4.00-11.30)
[2023-05-11 05:51] LABS: Albumin, Blood 2.5 g/dL (3.4-5.0); Albumin/Globulin Ratio 0.7 (0.8-1.8); Bun/Creatinine Ratio 18.1 (12.0-20.0); Calcium, Blood 8.5 mg/dL (8.5-10.1); Creatinine, Blood 1.88 mg/dL (0.40-1.00); Globulin, Blood 3.5 g/dL (2.2-4.0); Magnesium, Blood 2.5 mg/dL (1.6-2.4); Potassium, Blood 3.9 mmol/L (3.5-5.5)
--- NOTE | 2023-05-11 06:14 | NUR ---
SUMMARY PATIENT RESTLESS MOST OF THE NIGHT. MOSTLY WITH RESTLESS LEGS. PATIENT VERBALIZING AT TIME THAT SHE IS HAVING A PANIC ATTACK. NO C/O CP. PUREWICK IN PLACE NO URINE OUTPUT T/O NIGHT, NO URGE TO VOID. HEPARIN DRIP PER PHARMACY
[2023-05-11] MEDS ORDERED: FAMO20 PO (10:55)
[2023-05-11] MEDS ORDERED: BUDE.25 INH (10:58)
[2023-05-11] MEDS ORDERED: FERSU300 PO (10:59)
--- NOTE | 2023-05-11 12:10 | NUR ---
REASSESSMENT PT HAS BEEN QUITE ANXIOUS THIS MORNING, REQUIRING HER ATARAX AND THEN MOER ATIVAN. ATARAX ATTEMPTED FIRST BECAUSE PT ATIVAN MADE PT VERY SLEEPY AND DROPPED HER BP FOR A LITTLE BIT, BUT PT WAS STILL COMPLAINING OF ANXIETY AN HOUR AFTER RECEIVING IT. DR. RAMOS CAME BY AND SAW PT. MIRAPEX ORDER GIVEN FOR PT'S RESTLESS LEGS. LUNGS ARE VERY DIMINISHED. PT ON 3L/NC. DR. POWELL OK'D DIET ORDER FOR PT. PT'S AT THE BEDSIDE WHEN DR. RAMOS ROUNDED AND WAS UPDATED.
[2023-05-11 16:45] LABS: Base Excess Venous 4.7 mmol/L; Bicarbonate Venous 27.7 mmol/L (24.0-30.0); PCO2 Venous 50.3 mmHg (38-42); pH Blood Venous 7.38 (7.34-7.37)
[2023-05-11 17:10] LABS: Bun/Creatinine Ratio 22.6 (12.0-20.0); Calcium, Blood 8.9 mg/dL (8.5-10.1); Creatinine, Blood 1.46 mg/dL (0.40-1.00); Potassium, Blood 4.2 mmol/L (3.5-5.5)
--- NOTE | 2023-05-11 18:55 | NUR ---
SHIFT SUMMARY PT CONTINUED TO LOSE HIS PULMONARY RESERVE THROUGHOUT THE SHIFT SO AFTER DISCUSSION WITH PT AND HIS FAMILY DECISION MADE TO INTUBATE. PT INTUBATED. REQUIRED FENTANYL, VERSED AND PROPOFOL TO SEDATE PT SO HE WASN'T FIGHTING THE VENT. PT IS RESTING COMFORTABLY CURRENTLY. FIO2 DOWN TO 80%. SR, CURRENT MAP 60 WITH BOLUS INFUSING. ANGELA INSERTED PER DR. REYNOLDS'S ORDERS, CL YELLOW URINE RETURNED. OG WITH SMALL AMT OF BILIOUS RETURN. WILL REPORT TO NOC SHIFT.
--- NOTE | 2023-05-11 21:48 | NUR ---
PATIENT SLEEPING, AWAKENS TO SLIGHT STIMULI. VERBALIZED THAT SHE IS JUST TIRED. ABLE TO REPOSITION SELF IN BED AND MICHELET TAKING PO WITHOUT DIFFICULTY. MIN ASSIST WITH ORAL CARE. PUREWICK REMAINS IN PLACE WITH MIN OUTPUT. HEPARIN DRIP CONTINUES PER PHARMACY NEXT XA WITH AM LABS.
[2023-05-12] VITALS (38 sets, daily range): BP systolic 82–115; BP diastolic 45–100
--- NOTE | 2023-05-12 00:17 | NUR ---
PATIENT AWAKE AND FEELING SOB, RT CALLED FOR UDN AND ATIVAN PO GIVEN TO HELP WITH FEELING ANXIOUS.
--- NOTE | 2023-05-12 05:57 | NUR ---
SUMMARY PATIENT SLEEPING MOST OF THE NIGHT. HAVING 1 MOMENT OF ANXIETY AND FEELING SOB. RELIEF WITH UDN TX AND ATIVAN PO. PATIENT VERBALIZED FEAR OF RETURNING TO [facility] AND WHAT THEY WILL FIND. HEPARIN DRIP CONTINUES PER PHARMACY. VERY LITTLE URINE OUTPUT. NO URGE TO VOID AT THIS TIME.
--- NOTE | 2023-05-12 08:19 | NUR ---
AM NOTE... ASSUMED CARE OF PT AT 0700. PT IS A&Ox4. 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 IS IN SR IN THE 80'S BP IS SOFT BUT STABLE WITH MAP>65. SHE ON 3L NC WITH O2 SATS>95%. HEPARIN DRIP IS RUNNING PER ORDERS AT 14U/KG/HR. PT DENIES ANY CHEST PAIN AT THIS TIME. WILL CONTINUE TO MONITOR.
[2023-05-12 10:16] LABS: Bun/Creatinine Ratio 26.3 (12.0-20.0); Calcium, Blood 8.9 mg/dL (8.5-10.1); Creatinine, Blood 1.33 mg/dL (0.40-1.00); Potassium, Blood 4.9 mmol/L (3.5-5.5)
--- NOTE | 2023-05-12 17:30 | NUR ---
SHIFT SUMMARY.... WHEN THE PT RETURNED FROM THE CASE WORK AIDE SHE HAD A RIGHT RADIAL SITE WITH TR BAND IN PLACE WITH 12MLS IN THE BAND. UPON FIRST ASSESSMENT THERE WAS A SMALL HARD, TENDER AREA PROXIMAL TO THE TR BAND. WHEN ASSESSED AGAIN 5 MINS LATER THIS AREA WAS APROX THE SIZE OF A TENNIS BALL, FIRM, TENDER AND HARD. PROVIDER WAS NOTIFIED, MANUAL PRESSURE WAS HELD BY THIS RN AND THE PROVIDER, A SECOND TR BAND WAS PLACED DISTAL TO THE FIRST TR BAND. THE PT CONTINUES TO BE ON 2-3L NC WITH O2 SAT>95%. VS STABLE. PURWICK IN PLACE. NO BM THIS SHIFT. PT HAS DENIED ANY CHEST PAIN THIS SHIFT. CALL LIGHT IN REACH WILL CONTINUE TO MONITOR UNTIL REPORT IS GIVEN TO ONCOMING RN.
--- NOTE | 2023-05-12 21:11 | NUR ---
ASSUMED CARE PT IS A&O X4; SPO2 >92% ON 2L NC; BP SOFT, BUT MAINTAINING >65 AT THIS TIME. PT DENIES CP, SOB, OR NAUSEA. SOMNULENT, BUT AROUSES SPONTANEOUSLY. RIGHT RADIAL SITE IS FREE OF OOZING/BLEEDING. HEMATOMA/BRUISING NOTED; HEMATOMA REDUCED FROM PREVIOUS ASSESSMENT PER REPORT; ASSESSED W/ DAYSHIFT RN.
[2023-05-13] VITALS (11 sets, daily range): BP systolic 80–123; BP diastolic 55–76
--- NOTE | 2023-05-13 01:10 | NUR ---
TRANSFER PT TRANSFERRED TO [facility] 04 W/ BELONGINGS.
--- NOTE | 2023-05-13 01:39 | NUR ---
TRANSFER NOTE PT TRANSFERRED TO PCU AT 0050. REPORT TAKEN FROM SEJAL GALVAN. PT ON BIPAP 09/01 WITH 40% FIO2 AT TIME OF TRANSFER. PT EDUCATED ON LEAVING THE BIPAP ON UNTIL AFTER 2AM. REPORTED BASELINE OF 2-3L VIA NC. RT IN ROOM FOR TRANSFER. PT ABLE TO MOVE SELF IN BED. ANSWERING QUESTIONS APPROPRIATELY. VITALS STABLE. BED IN LOWEST POSITION AND CALL LIGHT WITHIN REACH.
[2023-05-13 03:59] LABS: BASOPHILS ABSOLUTE AUTO 0.01 K/mm3 (0.00-0.23); BASOPHILS PERCENT AUTO 0 % (0-2); EOSINOPHILS PERCENT AUTO 0 % (0-6); Hematocrit 27.7 % (33.0-51.0); Hemoglobin 8.5 g/dL (11.5-16.0); IMMATURE GRAN ABSOLUTE AUTO 0.06 K/mm3 (0.00-0.10); IMMATURE GRAN PERCENT AUTO 1 % (0-1); LYMPHOCYTES ABSOLUTE AUTO 0.48 K/mm3 (0.84-5.20); LYMPHOCYTES PERCENT AUTO 5 % (21-46); MONOCYTES ABSOLUTE AUTO 0.43 K/mm3 (0.16-1.47); MONOCYTES PERCENT AUTO 4 % (4-13); Mean Corpuscular HGB 26.3 pg (26.0-34.0); Mean Corpuscular HGB Conc 30.7 g/dL (31.5-36.5); Mean Corpuscular Volume 86 fL (80-100); Mean Platelet Volume 10.9 fL (9.1-12.4); NEUTROPHILS PERCENT AUTO 91 % (41-73); NRBC ABSOLUTE 0.02 K/mm3 (0.00-0.02); NRBC Auto 0.2 /100 WBC (0.0-0.2); Platelet Count 216 K/mm3 (150-400); RDW Coefficient Variation 19.2 % (11.7-14.2); Red Blood Cell Count 3.23 M/mm3 (3.80-5.20); White Blood Cell Count 10.48 K/mm3 (4.00-11.30)
[2023-05-13 04:28] LABS: Bun/Creatinine Ratio 28.4 (12.0-20.0); Calcium, Blood 9.4 mg/dL (8.5-10.1); Creatinine, Blood 1.48 mg/dL (0.40-1.00); Potassium, Blood 5.1 mmol/L (3.5-5.5)
--- NOTE | 2023-05-13 04:57 | NUR ---
SHIFT SUMMARY PT NOTED TO BE ANXIOUS AFTER ARRIVAL TO PCU. PT GIVEN BREAK FROM BIPAP PER REQUEST AND PLACED ON 3L VIA NC WITH SPO2 >90%. PT MEDICATED PER EMAR FOR ANXIETY, BUT CONTINUED TO BE ANXIOUS. PT VERBALIZED THAT SHE DIDN'T KNOW WHY SHE WAS ANXIOUS. PT PLACED BACK ON BIPAP AFTER RESPIRATIONS CONTINUED TO INCREASE TO 30'S AND SPO2 BEGAN TO DECREASE TO THE 80'S. PT AGREED TO BIPAP. PT APPEARS TO BE RESTING AT THIS TIME. VITALS REMAIN STABLE. BED IN LOWEST POSITION AND CALL LIGHT WITHIN REACH. THIS RN WILL CONTINUE TO MONITOR UNTIL SHIFT CHANGE AT 0700.
[2023-05-13 09:08] LABS: Percent Saturation 21.8 % (15.0-50.0)
--- NOTE | 2023-05-13 20:09 | NUR ---
SHIFT SUMMARY PT A/OX3-4. PT VERY ANXIOUS AT TIMES THROUGHOTU SHIFT, TREATED PER EMAR. PT BP'S LABILE DURING SHIFT, PT ASYMPTOMATIC. OTHER VSS THROUGHOUT SHIFT. PT WAS ON BIPAP FOR ROUGHLY AN HOUR TODAY, PT REQUESTED BEING OFF. PT ANSWERED ORIENTATION QUESTIONS SLOWLY AND WHEN BEING ASKED OTHER QUESTIONS, PT WOULD MUMBLE. NO REPORT OF CHEST PAIN/PRESSURE THROUGHOUT SHIFT. NO REPORT OF SOB/DYPNEA THROUGHOUTSHIFT. PT UP TO [facility] TODAY, MINIMAL ASSIST. PT ENCOURAGED TO SIT IN CHAIR, PT SEEMED UNINTERESTED, WILL CONTINUE TO ENCOURAGE. NO ACUTE EVENTS.
[2023-05-14] VITALS (10 sets, daily range): BP systolic 77–100; BP diastolic 48–67
[2023-05-14 03:40] LABS: BASOPHILS ABSOLUTE AUTO 0.02 K/mm3 (0.00-0.23); BASOPHILS PERCENT AUTO 0 % (0-2); EOSINOPHILS ABSOLUTE AUTO 0.01 K/mm3 (0.00-0.68); EOSINOPHILS PERCENT AUTO 0 % (0-6); Hematocrit 27.8 % (33.0-51.0); Hemoglobin 8.8 g/dL (11.5-16.0); IMMATURE GRAN ABSOLUTE AUTO 0.07 K/mm3 (0.00-0.10); IMMATURE GRAN PERCENT AUTO 1 % (0-1); LYMPHOCYTES ABSOLUTE AUTO 1.33 K/mm3 (0.84-5.20); LYMPHOCYTES PERCENT AUTO 17 % (21-46); MONOCYTES ABSOLUTE AUTO 0.62 K/mm3 (0.16-1.47); MONOCYTES PERCENT AUTO 8 % (4-13); Mean Corpuscular HGB 26.3 pg (26.0-34.0); Mean Corpuscular HGB Conc 31.7 g/dL (31.5-36.5); Mean Corpuscular Volume 83 fL (80-100); Mean Platelet Volume 10.6 fL (9.1-12.4); NEUTROPHILS ABSOLUTE AUTO 5.83 K/mm3 (1.96-9.15); NEUTROPHILS PERCENT AUTO 74 % (41-73); NRBC ABSOLUTE 0.03 K/mm3 (0.00-0.02); NRBC Auto 0.4 /100 WBC (0.0-0.2); Platelet Count 184 K/mm3 (150-400); RDW Standard Deviation 49.4 fL (35.1-46.3); Red Blood Cell Count 3.34 M/mm3 (3.80-5.20); White Blood Cell Count 7.88 K/mm3 (4.00-11.30)
[2023-05-14 03:55] LABS: Bun/Creatinine Ratio 30.1 (12.0-20.0); Calcium, Blood 9.2 mg/dL (8.5-10.1); Creatinine, Blood 1.33 mg/dL (0.40-1.00); Potassium, Blood 4.3 mmol/L (3.5-5.5)
--- NOTE | 2023-05-14 04:20 | NUR ---
SHIFT SUMMARY NO ACUTE CHANGES THIS SHIFT. AXO BUT LETHARGIC AT TIMES. IN SR. SOFT BP BUT STABLE. ON 2-3L OR BIPAP 09/01 WITH 3L BLEEDIN, SPO2 >94%, WHEN PATIENT TAKES MASK/NC OFF, DESATS <88%. REQUIRED OT PO ATIVAN DOSE DUE TO ANXIETY AND THE BIPAP USE, SUCCESFUL AT ALLEVIATING ANXIETY AND ALLOWING FOR REST. ARMBOARD REMAINS IN PLACE TO R ARM, NO CHANGE IN ECCHYMOSIS. PT DENYING CP THIS SHIFT. OTHERWISE RESTING. UP TO BATHROOM THIS SHIFT, SOME EXERTIONAL DYSPNEA NOTED. RECOVERED QUICKLY >92% WITH REST. BED ALARM ON. CALL LIGHT WITHIN REACH.
--- NOTE | 2023-05-14 16:16 | NUR ---
UPDATE PT CURRENTLY SITTING IN RECLINER AFTER WORKING WITH THERAPY, SEE THERAPIST NOTES. PT SON AT BEDSIDE. THIS RN IN ROOM FOR ROUNDING AND 1600 VITALS. PT SON STATES THAT PT IS "UNCOMFORTABLE" IN RECLINER. THIS AKSED IF PT WAS UNCOMFORTALE, PT REPLIED FAINTLY "YES" SHE NODDED HER HEAD. THIS ASKED IF SHE WOULD LIKE TO RELCINE MORE IN CHAIR. PT REMAINED SILENT. PT INFORMED PT AND PT SON THAT DOCTORS WANT STAFF TO ENCOURAGE SITTING IN CHAIR. PT ASKED AGAIN IF SHE WOULD LIKE TO RECLINE MORE FOR BETTER COMFORT, PT RESPONDED "I DON'T CARE. I AM JUST TIRED." PT RECLINED TO OMFORT LEVEL. PT ASKED IF SHE IS HAVING ANY PAIN, PT SHOOK HEAD "NO." PT ASKED HOW HER BREATHING FELT, PT REMAINED SILENT. VITALS TAKEN, STABLE VS.
--- NOTE | 2023-05-14 19:41 | NUR ---
SHIFT SUMMARY PT A/OX3-4. PT BP'S SOFT DURING SHIFT BUT STABLE. OTHER VSS THROUGHOUT SHIFT WITH O2 SATS IN THE 90'S ON 3L NC. PT REPORTED SOB THIS AM AFTER AMBULATING FROM CHAIR TO THE BED, WOB NORAMLIZED MOMENTS AFTER LAYING IN BED, SATS REMAINED STABLE. NO REPORT OF CHEST PAIN/PRESSURE THROUGHOUT SHIFT. PT SEEN BY DANA, SEE THERAPY NOTES. PT UP TO RECLINER AFTER WORKING WITH THERAPY. PT CONTINUED TO BE UNINTERESTED IN AMBULATING OR EATING. PT SON ATTEMPTED TO ENTICE PT WITH FOOD FROM OUTSIDE OF HOSPITAL, PT UNITERESTED. NO ACUTE EVENTS.
--- NOTE | 2023-05-14 19:44 | NUR ---
ASSUMPTION OF CARE: PATIENT IS ALERT AND ORIENTED, VERY DROSY AND BLOOD PRESSURE IS SOFTER, WILL CONTINUE TO MONITOR, NO URGENT CONCERNS BLOOD PRESSURE IS TYPICALLY LOW AND POSITION OF ARM DURING BLOOD PRESSURE IS ABOVE HEART, WILL CONTINUE TO MONITOR, RADIAL SITE RECOVERED AND HEMATOMA DECREASING PER PREVIOUS RN, NO CONCERNS FROM PATIENT AT THIS TIME, DENIES CHEST PAIN PRESSURE OR SOB.
[2023-05-15] VITALS: BP 91/59
[2023-05-15 04:05] VITALS: BP 95/60
--- NOTE | 2023-05-15 04:42 | NUR ---
END OF SHIFT: PATIENT WITH MULTIPLE ATTEMPTS AT REORIENTING ABOUT PUREWICK, AND TO KEEP OXYGEN ON, DESATURATES WITHOUT, PATIENT IS BEING VERY FORGETFUL. WILL BLADDER SCAN ONCE MYSELF AND PULP DRIER FIRER HAVE A MOMENT, PATIENT DENIES CHEST PAIN WAS ABLE TO WEAR MASK FOR 3 HOURS IN TOTAL, PATIENT STILL ANSWERS ORIENTING QUESTIONS CORRECTLY, WILL CONTINUE TO MONITOR, BELIEVE SHE SHOULD NOT BE DISCHARGE BUT WATCH ANOTHER NIGHT BUT ABLE TO MEDICAL WITH TELESITTER FOR SAFETY.
[2023-05-15 07:10] VITALS: BP 96/60
--- NOTE | 2023-05-15 11:25 | NUR ---
UPDATE AFTER WORKING WITH THERAPY, POSTAL SERVICE MAIL PROCESSOR REPORTED TO THIS RN THAT PT WAS "CRYING IN HER ROOM." THIS RN TO ASSESS. PT LAYING ON HER RIGHT SIDE WITH HOB FLAT. PT CRYING AND MOANING THIS RN ENTERED ROOM. WHEN ASKED WHAT WAS GOING ON WITH THE PT, PT RESPONDED "THE ISRAEL LEFT MY BED DOWN." THIS RN ASKED IF PT WANTED THE HOB ELEVATED, PT RESPONDED "YEAH." HOB ELEVATED TO COMFORT LEVEL OF PT. PT CONTINUED CRYING. PT SATS DOWN 88% PT NC WAS PULLED OUT OF NARES AND PT CRYING. O2 REAPPLIED AND O2 INCRASED FROM 1L NC TO 2L NC. SATS RETURNED TO 90'S. PT ASKED IF SHE WOULD LIKE ANYTHING FOR ANXIETY, PT LOU "NO." WHEN ASKED WHAT THIS RN COULD DO TO HELP, PT RESPONDED "I DON'T KNOW." MD TO PT ROOM ROUGHLY 5 MINUTES LATER. PT NO LONGER CRYING BUT CONTINUES TO MOAN AND MUMBLE WHEN ANSWERING MD QUESTIONS. SOME QUESTION ANSWERED APPROPIATELY, OTHERS INCOMPREHESIBLE.
[2023-05-15 11:39] VITALS: BP 108/76
[2023-05-15] MEDS ORDERED: Lisinopril2.5 MG PO (12:58)
[2023-05-15] MEDS ORDERED: PRAM.5 PO (13:01)
[2023-05-15] MEDS ORDERED: TICA90TA PO (13:01)
--- NOTE | 2023-05-15 18:45 | NUR ---
DISCHARGE UPDATE DISCHARGE PACKET GONE OVER WITH PT AND PT SON AT 1825. PT DISCHARGED AT 1835 VIA WHEELCHAIR AND ON 2 L NC. PT PROVIDED AND EDUCATED ON PORTABLE O2 BEFORE DISCHARGE. PT ABLE TO TRANSFER SELF TO AND FROM WHEELCHAIR ON HER OWN, TOLERATED WELL. PT MORE ALERT DURING DISCHARGE THAN SHE HAS BEEN FOR LAST 3 DAYS WITH THIS RN. PT BELONGINGS AND DISCHARGE PACKET WIOTH PT SON DUR DISCHARGE. PT ABLE TO DRESS HERSELF AT TIME OF DISCHARGE.
== END 2023-05-15 18:35 | disposition home health service (06) | DRG 281 ==
LOC: ER 15:53 → PCU 20:07 → ICUE 20:07 → PCU 05-13 00:59
PROVIDERS: Internal Medicine; Student in an Organized Health Care Education/Training Program; ADMIT Student in an Organized Health Care Education/Training Program
PROC: 4A023N7 Measurement of Cardiac Sampling and Pressure, Left Heart, Percutaneous Approach (ICD-10-PCS; principal; 2023-05-12)
PROC: B2111ZZ Fluoroscopy of Multiple Coronary Arteries using Low Osmolar Contrast (ICD-10-PCS; 2023-05-12)
PROC: B240ZZ3 Ultrasonography of Single Coronary Artery, Intravascular (ICD-10-PCS; 2023-05-12)
PROC: 5A09357 Assistance with Respiratory Ventilation, Less than 24 Consecutive Hours, Continuous Positive Airway Pressure (ICD-10-PCS; 2023-05-13)
DX: T82.855A Stenosis of coronary artery stent, initial encounter (principal); I21.4 Non-ST elevation (NSTEMI) myocardial infarction; E87.1 Hypo-osmolality and hyponatremia; I42.0 Dilated cardiomyopathy; N17.9 Acute kidney failure, unspecified; I50.22 Chronic systolic (congestive) heart failure; J96.11 Chronic respiratory failure with hypoxia; I13.0 Hypertensive heart and chronic kidney disease with heart failure and stage 1 through stage 4 chronic kidney disease, or unspecified chronic kidney disease; R57.9 Shock, unspecified; N18.30 Chronic kidney disease, stage 3 unspecified; I34.0 Nonrheumatic mitral (valve) insufficiency; R74.01 Elevation of levels of liver transaminase levels; D63.1 Anemia in chronic kidney disease; J44.9 Chronic obstructive pulmonary disease, unspecified; G25.81 Restless legs syndrome; E78.00 Pure hypercholesterolemia, unspecified; I49.3 Ventricular premature depolarization; F41.1 Generalized anxiety disorder; F17.210 Nicotine dependence, cigarettes, uncomplicated; I48.0 Paroxysmal atrial fibrillation; I25.10 Atherosclerotic heart disease of native coronary artery without angina pectoris; I25.2 Old myocardial infarction; Z95.5 Presence of coronary angioplasty implant and graft; Z91.041 Radiographic dye allergy status; Z79.899 Other long term (current) drug therapy; Z79.811 Long term (current) use of aromatase inhibitors; Z79.51 Long term (current) use of inhaled steroids; Z79.82 Long term (current) use of aspirin; Z90.710 Acquired absence of both cervix and uterus
CPT/HCPCS: 36415; 71046; 76770; 76937; 80048; 80053; 80400; 82533; 82728; 82803; 83540; 83550; 83605; 83735; 84484; 85025; 85520; 85610; 85730; 93005; 93010; 93458; 94640; 94660; 94664; 94760; 94761; 94762; 97110; 97116; 97162; 97530; 99152; 99153; 99285-25; A9270; C1769; C1887; C1894; C8929; J0834; J1200; J1644; J2060; J2250; J3010; J7030; J7050; J7512; Q9957; Q9967

== ENCOUNTER 2023-05-17 10:54 | Emergency (ER) | payer OTHER ==
[~2023-05-17] VITALS: Ht 154.9 cm; Wt 68.0 kg
[~2023-05-17 10:54] MED LIST changes: +ALBU8HFA2 INH; +AMBIEN10 MG PO; +Crestor20 MG PO; +ERGO400 PO; +FERROUS SULFAT325 M3 PO; +FERSU300 PO; +HYDHCL25 PO; +K-TAB ER20 ME1 PO; +Lisinopril2.5 MG PO; +METO50ER PO; +PRAM.5 PO; +TORS10 PO; +ZOLP5 PO
[2023-05-17 12:27] LABS: Albumin/Globulin Ratio 0.8 (0.8-1.8); Bilirubin, Total 0.6 mg/dL (0.1-1.0); Bun/Creatinine Ratio 12.8 (12.0-20.0); Calcium, Blood 9.3 mg/dL (8.5-10.1); Creatinine, Blood 1.96 mg/dL (0.40-1.00); Globulin, Blood 3.6 g/dL (2.2-4.0); Total Protein, Blood 6.6 g/dL (6.4-8.2)
[2023-05-17 12:50] LABS: BASOPHILS ABSOLUTE AUTO 0.02 K/mm3 (0.00-0.23); BASOPHILS PERCENT AUTO 0 % (0-2); EOSINOPHILS PERCENT AUTO 2 % (0-6); Hematocrit 30.3 % (33.0-51.0); Hemoglobin 9.2 g/dL (11.5-16.0); IMMATURE GRAN ABSOLUTE AUTO 0.03 K/mm3 (0.00-0.10); IMMATURE GRAN PERCENT AUTO 1 % (0-1); LYMPHOCYTES ABSOLUTE AUTO 1.14 K/mm3 (0.84-5.20); LYMPHOCYTES PERCENT AUTO 18 % (21-46); MONOCYTES ABSOLUTE AUTO 0.67 K/mm3 (0.16-1.47); MONOCYTES PERCENT AUTO 11 % (4-13); Mean Corpuscular HGB 26.6 pg (26.0-34.0); Mean Corpuscular HGB Conc 30.4 g/dL (31.5-36.5); Mean Corpuscular Volume 88 fL (80-100); Mean Platelet Volume 10.9 fL (9.1-12.4); NEUTROPHILS ABSOLUTE AUTO 4.44 K/mm3 (1.96-9.15); NEUTROPHILS PERCENT AUTO 69 % (41-73); Platelet Count 188 K/mm3 (150-400); RDW Coefficient Variation 20.8 % (11.7-14.2); RDW Standard Deviation 63.5 fL (35.1-46.3); Red Blood Cell Count 3.46 M/mm3 (3.80-5.20)
[2023-05-17 15:30] VITALS: BP 108/86
== END 2023-05-17 16:12 | disposition home or self-care (01) ==
LOC: ER 10:54
PROVIDERS: Emergency Medicine
DX: I95.9 Hypotension, unspecified (principal); Z91.041 Radiographic dye allergy status; Z79.899 Other long term (current) drug therapy; Z79.82 Long term (current) use of aspirin; J45.909 Unspecified asthma, uncomplicated; I25.2 Old myocardial infarction; I10 Essential (primary) hypertension; E78.5 Hyperlipidemia, unspecified; I25.10 Atherosclerotic heart disease of native coronary artery without angina pectoris; F17.210 Nicotine dependence, cigarettes, uncomplicated
CPT/HCPCS: 80053; 84484; 85025; 93005; 93010; 94640; 94664; 99285-25; J7030

== ENCOUNTER 2023-05-23 04:47 | Emergency (ER) | payer OTHER ==
[~2023-05-23] VITALS: Ht 172.7 cm; Wt 81.7 kg
== END 2023-05-23 07:10 ==
LOC: ER 04:47
DX: I46.9 Cardiac arrest, cause unspecified (principal); Z87.891 Personal history of nicotine dependence
CPT/HCPCS: 99285-25